=== PATIENT | female | born 1950 | race Two or more races ===

== ENCOUNTER 2020-02-10 11:19 | Outpatient (REF) | payer MEDICARE, SELFPAY ==
[2020-02-10 12:33] LABS: Alanine Aminotransferase 21 U/L (0-31); Albumin Level 4.5 g/dL (3.5-5.0); Alkaline Phosphatase 62 U/L (39-117); Anion Gap 15 (12-20); Aspartate Amino Transferase 27 U/L (5-31); Bilirubin Total 0.4 mg/dL (0.0-1.0); Blood Urea Nitrogen 16 mg/dL (9-16); Calcium 9.6 mg/dL (8.4-10.2); Carbon Dioxide 28 mmol/L (22-29); Chloride 100 mmol/L (96-108); Cholesterol 115 mg/dL; Estimated Glomerular Filt Rate > 60; Glucose Fasting 121 mg/dL (60-99); HDL Cholesterol 44 mg/dL; LDL Cholesterol Calculated 52 mg/dl; Potassium 4.5 mmol/l (3.3-5.1); Sodium 138 mmol/L (135-145); Total Protein 7.6 g/dL (6.5-8.0); Triglycerides 99 mg/dL
== END 2020-02-10 11:20 | disposition home or self-care (01) ==
LOC: HO.LAB 11:19
PROVIDERS: PCP Internal Medicine; Visit Provider Internal Medicine
DX: E11.9 Type 2 diabetes mellitus without complications (principal); E78.00 Pure hypercholesterolemia, unspecified
CPT/HCPCS: 80053; 80061

== ENCOUNTER 2020-07-07 11:09 | Outpatient (REF) | payer MEDICARE, SELFPAY | END 2020-07-07 11:10 | disposition home or self-care (01) | LOC: HO.LAB 11:09 | PROVIDERS: Visit Provider Internal Medicine | DX: Z20.822 Contact with and (suspected) exposure to COVID-19 (principal) | CPT/HCPCS: C9803; U0003; U0005 ==

== ENCOUNTER 2020-10-11 10:27 | Outpatient (REF) | payer MEDICARE, SELFPAY ==
[2020-10-11 11:18] LABS: Basophils Percent Auto 0.7 % (0-2); Eosinophils Absolute Auto 0.1 X10*3/uL (0.0-0.4); Hematocrit 41.1 % (37-47); Hemoglobin 12.5 g/dl (12.0-16.0); Imm Gran Abs Auto 0.01 X10*3/uL (0.00-0.03); Imm Gran Pct Auto 0.2 % (0.0-0.4); Lymphocytes Absolute Auto 2.3 X10*3/uL (1.2-4.9); Lymphocytes Percent Auto 38.1 % (20-40); MANUAL DIFF FLAG SCAN; Mean Corpuscular HGB Conc 30.4 g/dl (31.0-35.0); Mean Corpuscular Hemoglobin 28.5 pg (27.0-33.0); Mean Corpuscular Volume 93.6 fL (80-98); Mean Platelet Volume 12.5 fL (9.4-12.3); Monocytes Absolute Auto 0.5 X10*3/uL (0.1-1.2); Monocytes Percent Auto 7.7 % (2-11); Neutrophils Absolute Auto 3.1 X10*3/uL (2.0-8.3); Neutrophils Percent Auto 51.3 % (45-73); PLT CLUMP 1; Red Blood Count 4.39 X10*6/uL (4.20-5.50); Red Cell Distribution Width 14.2 % (11.0-16.0); SCAN SMEAR FLAG 1
[2020-10-11 11:20] LABS: Alanine Aminotransferase 26 U/L (0-31); Albumin Level 4.3 g/dL (3.5-5.0); Alkaline Phosphatase 95 U/L (39-117); Anion Gap 17 (12-20); Aspartate Amino Transferase 29 U/L (5-31); Bilirubin Total < 0.2 mg/dL (0.0-1.0); Blood Urea Nitrogen 14 mg/dL (9-16); Calcium 9.7 mg/dL (8.4-10.2); Carbon Dioxide 24 mmol/L (22-29); Chloride 104 mmol/L (96-108); Cholesterol 188 mg/dL; Estimated Glomerular Filt Rate > 60; Glucose Fasting 136 mg/dL (60-99); HDL Cholesterol 47 mg/dL; LDL Cholesterol Calculated 115 mg/dl; Potassium 4.7 mmol/L (3.3-5.1); Sodium 140 mmol/L (135-145); Total Protein 7.5 g/dL (6.5-8.0); Triglycerides 134 mg/dL
[2020-10-11 12:20] LABS: White Blood Count 6.1 X10*3/uL (4.8-10.8)
[2020-10-11 12:21] LABS: SLIDE REVIEW VERIFIED
[2020-10-11 12:52] LABS: Folate 11.4 ng/mL (> or = 4.0); Vitamin B12 463 pg/mL (200-900)
[2020-10-11 14:05] LABS: Creatinine Urine 122.37 mg/dL; Microalbum/Creatinine Ratio Ur 10.6 ug/mg cr
[2020-10-15 14:27] LABS: Vitamin D 25-OH, D2 <4 ng/mL; Vitamin D 25-OH, D3 38 ng/mL; Vitamin D 25-OH, Total 38 ng/mL (30-100)
== END 2020-10-11 10:28 | disposition home or self-care (01) ==
LOC: HO.LAB 10:27
PROVIDERS: PCP Internal Medicine; Visit Provider Internal Medicine
DX: D64.9 Anemia, unspecified (principal); E53.8 Deficiency of other specified B group vitamins; E55.9 Vitamin D deficiency, unspecified; E11.9 Type 2 diabetes mellitus without complications; E78.5 Hyperlipidemia, unspecified
CPT/HCPCS: 36415; 80053; 80061; 82043; 82306; 82607; 82746; 85025

== ENCOUNTER 2021-06-29 10:59 | Outpatient (REF) | payer OTHER, SELFPAY ==
[2021-06-29 11:27] LABS: MANUAL DIFF FLAG NO
[2021-06-29 11:50] LABS: Basophils Absolute Auto 0.1 X10*3/uL (0.0-0.2); Basophils Percent Auto 0.7 % (0-2); Eosinophils Absolute Auto 0.1 X10*3/uL (0.0-0.4); Eosinophils Percent Auto 1.8 % (0-4); Hematocrit 40.1 % (37.0-47.0); Hemoglobin 12.2 g/dl (12.0-16.0); Imm Gran Abs Auto 0.02 X10*3/uL (0.00-0.03); Imm Gran Pct Auto 0.3 % (0.0-0.4); Lymphocytes Absolute Auto 3.4 X10*3/uL (1.2-4.9); Lymphocytes Percent Auto 44.4 % (20-40); Mean Corpuscular HGB Conc 30.4 g/dl (31.0-35.0); Mean Corpuscular Hemoglobin 27.6 pg (27.0-33.0); Mean Corpuscular Volume 90.7 fL (80.0-98.0); Mean Platelet Volume 11.4 fL (9.4-12.3); Monocytes Absolute Auto 0.6 X10*3/uL (0.1-1.2); Monocytes Percent Auto 7.5 % (2-11); Neutrophils Absolute Auto 3.4 x10*3/uL (2.0-8.3); Neutrophils Percent Auto 45.3 % (45-73); Platelet Count 231 X10*3/uL (160-400); Red Blood Count 4.42 X10*6/uL (4.20-5.50); Red Cell Distribution Width 14.6 % (11.0-16.0); White Blood Count 7.6 X10*3/uL (4.8-10.8)
[2021-06-29 12:42] LABS: Alanine Aminotransferase 30 U/L (0-31); Albumin Level 4.2 g/dL (3.5-5.0); Alkaline Phosphatase 72 U/L (39-117); Anion Gap 16 (12-20); Aspartate Amino Transferase 33 U/L (5-31); Bilirubin Total 0.5 mg/dL (0.0-1.0); Blood Urea Nitrogen 13 mg/dL (9-16); Calcium 9.8 mg/dL (8.4-10.2); Carbon Dioxide 27 mmol/L (22-29); Chloride 101 mmol/L (96-108); Cholesterol 144 mg/dL; Estimated Glomerular Filt Rate > 60; Glucose Fasting 139 mg/dL (60-99); HDL Cholesterol 47 mg/dL; LDL Cholesterol Calculated 76 mg/dl; Potassium 4.7 mmol/L (3.3-5.1); Sodium 139 mmol/L (135-145); Total Protein 7.4 g/dL (6.5-8.0); Triglycerides 109 mg/dL
[2021-06-29 13:46] LABS: Creatinine Urine 145.35 mg/dL; Microalbum/Creatinine Ratio Ur 11.6 ug/mg cr
[2021-06-29 14:05] LABS: Folate 10.5 ng/mL (> or = 4.0); Vitamin B12 700 pg/mL (200-900)
[2021-07-04 12:25] LABS: Vitamin D 25-OH, D2 <4 ng/mL; Vitamin D 25-OH, D3 38 ng/mL; Vitamin D 25-OH, Total 38 ng/mL (30-100)
== END 2021-06-29 11:00 | disposition home or self-care (01) ==
LOC: HO.LAB 10:59
PROVIDERS: PCP Internal Medicine; Visit Provider Internal Medicine
DX: E78.5 Hyperlipidemia, unspecified (principal); E11.9 Type 2 diabetes mellitus without complications; E55.9 Vitamin D deficiency, unspecified; E53.8 Deficiency of other specified B group vitamins; D64.9 Anemia, unspecified
CPT/HCPCS: 36415; 80053; 80061; 82043; 82306; 82607; 82746; 85025

== ENCOUNTER 2021-12-13 11:16 | Outpatient (REF) | payer OTHER, SELFPAY ==
[2021-12-13 12:54] LABS: Alanine Aminotransferase 38 U/L (0-31); Albumin Level 4.3 g/dL (3.5-5.0); Alkaline Phosphatase 88 U/L (39-117); Anion Gap 18 (12-20); Aspartate Amino Transferase 44 U/L (5-31); Bilirubin Total 0.3 mg/dL (0.0-1.0); Blood Urea Nitrogen 15 mg/dL (9-16); Calcium 9.7 mg/dL (8.4-10.2); Carbon Dioxide 26 mmol/L (22-29); Chloride 102 mmol/L (96-108); Cholesterol 200 mg/dL; Estimated Glomerular Filt Rate > 60; Glucose Fasting 140 mg/dL (60-99); HDL Cholesterol 47 mg/dL; LDL Cholesterol Calculated 121 mg/dl; Potassium 5.2 mmol/L (3.3-5.1); Sodium 141 mmol/L (135-145); Total Protein 7.5 g/dL (6.5-8.0); Triglycerides 160 mg/dL
[2021-12-13 13:15] LABS: Vitamin D 25-OH Total 46.7 ng/mL (>30)
[2021-12-13 13:47] LABS: Creatinine Urine 159.82 mg/dL; Microalbum/Creatinine Ratio Ur 10.6 ug/mg cr
[2021-12-13 14:05] LABS: Folate 13.2 ng/mL (> or = 4.0); Vitamin B12 564 pg/mL (200-900)
== END 2021-12-13 11:17 | disposition home or self-care (01) ==
LOC: HO.LAB 11:16
PROVIDERS: PCP Internal Medicine; Visit Provider Internal Medicine
DX: E78.5 Hyperlipidemia, unspecified (principal); E55.9 Vitamin D deficiency, unspecified; E53.8 Deficiency of other specified B group vitamins; E11.9 Type 2 diabetes mellitus without complications
CPT/HCPCS: 36415; 80053; 80061; 82043; 82306; 82607; 82746

== ENCOUNTER 2022-06-27 09:27 | Outpatient (REF) | payer OTHER, SELFPAY ==
[2022-06-27 11:01] LABS: Creatinine Urine 149.37 mg/dL; Microalbum/Creatinine Ratio Ur 12.7 ug/mg cr
[2022-06-27 12:34] LABS: Alanine Aminotransferase 30 U/L (0-31); Albumin Level 4.2 g/dL (3.5-5.0); Alkaline Phosphatase 93 U/L (39-117); Anion Gap 19 (12-20); Aspartate Amino Transferase 35 U/L (5-31); Bilirubin Total 0.4 mg/dL (0.0-1.0); Blood Urea Nitrogen 15 mg/dL (9-16); Calcium 9.4 mg/dL (8.4-10.2); Carbon Dioxide 21 mmol/L (22-29); Chloride 105 mmol/L (96-108); Cholesterol 144 mg/dL; Estimated Glomerular Filt Rate > 60; Glucose Fasting 155 mg/dL (60-99); HDL Cholesterol 49 mg/dL; LDL Cholesterol Calculated 72 mg/dl; Potassium 4.5 mmol/L (3.3-5.1); Sodium 140 mmol/L (135-145); Total Protein 7.5 g/dL (6.5-8.0); Triglycerides 117 mg/dL
[2022-06-27 12:50] LABS: Vitamin B12 863 pg/mL (200-900)
== END 2022-06-27 09:28 | disposition home or self-care (01) ==
LOC: HO.LAB 09:27
PROVIDERS: PCP Internal Medicine; Visit Provider Internal Medicine
DX: Z00.00 Encounter for general adult medical examination without abnormal findings (principal); E78.5 Hyperlipidemia, unspecified; E55.9 Vitamin D deficiency, unspecified; E11.9 Type 2 diabetes mellitus without complications; E53.8 Deficiency of other specified B group vitamins
CPT/HCPCS: 36415; 80053; 80061; 82043; 82306; 82607; 82746

== ENCOUNTER 2022-10-05 13:43 | Outpatient (AMB) | payer OTHER, SELFPAY ==
[2022-10-05 13:47] VITALS: BP 136/72; BMI 32.4
--- NOTE | 2022-10-05 13:47 | MHC.PC.OV ---
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 by: Self / Same As Patient Allergies Gadolinium-Containing Contrast Medi [Gadolinium-Containing Contrast] Allergy (Mild, Verified 10/05/22 14:04) HIVES atorvastatin Adverse Reaction (Intermediate, Verified 10/05/22 14:04) stomach upset caffeine [CAFFEINE] Adverse Reaction (Intermediate, Verified 10/05/22 14:04) Hypotension lisinopril Adverse Reaction (Intermediate, Verified 10/05/22 14:04) cough simvastatin Adverse Reaction (Intermediate, Verified 10/05/22 14:04) headache Medication List - Last Reconciled 10/05/22 by Shiela Murphy MD alcohol swabs (Alcohol Prep Pads) 1 pad topical BID 50 days alprazolam 0.5 mg PO DAILY PRN 30 days amlodipine 5 mg PO DAILY 90 days baclofen 10 mg PO TID PRN 30 days blood sugar diagnostic (FreeStyle Lite Strips) 1 strip miscellaneous DAILY blood-glucose meter (FreeStyle Lite Meter kit) As directed budesonide-formoterol 80-4.5 mcg/actuation 1 inh inhalation BID 30 days cyanocobalamin (vitamin B-12) ER 1,000 mcg PO DAILY 90 days ibuprofen 800 mg PO Q8H PRN 30 days lancets (TRUEplus Lancets) Use 1 lancet once a day metformin 1,000 mg PO BID 90 days pantoprazole 40 mg PO DAILY 90 days polyvinyl alcohol 1.4% 0 drps ophthalmic (eye) rosuvastatin 40 mg PO DAILY 90 days Tobacco use date assessed: 06/05/22 Fall risk assessment: No Falls in past year Last assessed Fall Risk: 10/05/22 Dental Screening Dental Screen Date: 10/05/22 Did you have a dental visit in the last 12 months?: Yes Did you have a dental problem in the last 6 months where you did not have access to dental care?: No Was dental information given to patient?: Patient has dentist HPI HPI Comments History of Present Illness Details This is a 71-year-old female with diabetes mellitus type 2, hypertension, pure hypercholesterolemia and GERD that comes today for follow-up on her conditions. Blood pressure stable. LDL close to goal. A1c elevated and she admits she is only taking 1 tablet of metformin instead of 2. GERD stable with medication. Denies any chest pain or shortness of breath. Had lumbar pain radiating to the leg and associated with leg numbness that improved on its own. [facility] Medical History B12 deficiency Diabetes mellitus Essential hypertension GERD (gastroesophageal reflux disease) Hypovitaminosis D Polyarthralgia Pure hypercholesterolemia Surgical History History of eye surgery Tubal ligation status Family History Father Asthma Mother Stomach cancer Brother Prostate cancer Bladder cancer Social History Housing: Apartment Alcohol intake: current Alcohol intake frequency: holidays/special occasions only Alcohol type: beer Patient Tobacco Use Status: Never used Tobacco e-Cigarette/Vaping Use: Never Used Second Hand Smoke Exposure: No service: No Current occupational status: disabled Cognitive needs: No Hearing needs: No Vision needs: Yes Questionnaire Thrive Questionnaire Date Thrive assessed: 06/05/22 AMADOU-7 AMB Questionnaire AMADOU-7 Date AMADOU - 7 assessed: 07/11/21 Source: Developed by Drs. Yahir Hayward, Pearl Rodriguez, Wally Pollock and colleagues, with an educational justice from [employer]. Review of Systems Const All systems reviewed & are unremarkable except as noted in HPI and below Eyes Reports no additional complaints, Denies change in vision and Denies other visual disturbances Card Denies chest pain at rest, Denies chest pain with activity, Denies edema, Denies irregular heart rhythm, Denies claudication, Denies dyspnea, Denies dyspnea on exertion, Denies orthopnea, Denies paroxysmal nocturnal dyspnea and Denies slow heart rate Resp Denies cough, Denies dyspnea and Denies dyspnea on exertion GI Denies abdominal pain, Denies change in bowel habits, Denies excessive flatus, Denies nausea and Denies vomiting Denies urinary incontinence, Denies urinary hesitancy and Denies urinary urgency Musc Denies abnormal gait, Denies atrophy, Denies deformity and Denies limited range of motion Skin/Breast Denies bleeding lesions, Denies changing lesions and Denies rash Neuro Denies abnormal gait and Denies lack of coordination Physical exam (Primary Care) Vital Signs: Last Vital Signs BP 136/72 10/05/22 13:47 BMI result Body Mass Index 32.4 Tobacco/Smoking Status: Tobacco use Status Tobacco use date assessed 06/05/22 10/05/22 13:54 Patient Tobacco Use Status Never used Tobacco 10/05/22 13:54 Tobacco use type 07/11/21 14:43 e-Cigarette/Vaping Use Never Used 10/05/22 13:54 Thrive Assessment: Date of Thrive Assessment Date Thrive assessed 06/05/22 10/05/22 13:54 Eyes General: appearance normal, both eyes and all related structures Eyelids: Yes eyelids normal Conjunctivae: conjunctivae normal Neck Neck: Yes normal visual inspection and Yes supple Resp Effort & Inspection: normal respiratory effort Auscultation: clear to auscultation bilaterally Cardio Jugular venous distension: no JVD Rate: regular rate Rhythm: regular rhythm Heart sounds: S1 normal heart sound present and S2 normal heart sound present Extrem General: Yes full ROM Results AMB Hemoglobin A1c AMB Hemoglobin A1c 7.3 % Last Edit by EDIN Michaels on 10/05/22 14:02 Results Reviewed Results Reviewed: Laboratory Last Values Hgb A1c (Clinic) 7.3 % (4.0-6.0) H 10/05/22 13:54 Assessment and Plan Assessment & Plan (1) Diabetes mellitus: Code(s): E11.9 - Type 2 diabetes mellitus without complications Qualifiers: Diabetes mellitus type: type 2 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 A1c goal is equal or less than 7% (2) Essential hypertension: Code(s): I10 - Essential (primary) hypertension Plan: Continue amlodipine. Blood pressure goal is equal or less than 130/80. (3) GERD (gastroesophageal reflux disease): Code(s): K21.9 - Gastro-esophageal reflux disease without esophagitis Qualifiers: Esophagitis presence: esophagitis presence not specified Qualified Code(s): K21.9 - Gastro-esophageal reflux disease without esophagitis Plan: Continue pantoprazole as needed (4) Pure hypercholesterolemia: Code(s): E78.00 - Pure hypercholesterolemia, unspecified Plan: Continue statins. LDL goal is less than 70 Orders: Orders Lipid Panel 5 Months E78.5 - Hyperlipidemia, unspecified Microalbumin, Random (w Creat) 5 Months E11.9 - Type 2 diabetes mellitus without complications Vitamin D 25-OH Total 5 Months E55.9 - Vitamin D deficiency, unspecified Comprehensive [place]. 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
== END 2022-10-05 14:43 | disposition home or self-care (01) ==
PROVIDERS: Visit Provider Internal Medicine
DX: E11.9 Type 2 diabetes mellitus without complications (principal); I10 Essential (primary) hypertension; K21.9 Gastro-esophageal reflux disease without esophagitis; E78.00 Pure hypercholesterolemia, unspecified
CPT/HCPCS: 83036; 99214

== ENCOUNTER 2023-05-04 14:44 | Outpatient (REF) | payer OTHER, SELFPAY ==
--- NOTE | ~2023-05-04 | MM_ITS ---
EXAMINATION: MM SCREENING DIGITAL BREAST TOMOSYNTHESIS, BILATERAL CLINICAL INFORMATION: Screening. Asymptomatic. COMPARISON: Mammography: This study is compared with prior exams dating back to 2016. TECHNIQUE: Digital breast tomosynthesis is performed in both the craniocaudal and mediolateral oblique views along with computer-aided detection (CAD). Synthesized 2D images are generated from the tomosynthesis. FINDINGS: There are scattered areas of fibroglandular density (ACR BI-RADS breast composition Category b). There are no significant masses, abnormal calcifications, or other abnormalities. MM/MM tomosynthesis screening BI IMPRESSION: No mammographic evidence of malignancy. ASSESSMENT: BI-RADS BI-RADS 1 - Negative RECOMMENDATION: Routine annual mammography screening. 1 year F/U This examination should not preclude the clinical evaluation of a suspicious palpable abnormality. This patient's information was entered into a reminder system with a target due date for their next mammogram.
== END 2023-05-04 14:45 | disposition home or self-care (01) ==
LOC: HO.MAMMO 14:44
PROVIDERS: Visit Provider Internal Medicine
DX: Z12.31 Encounter for screening mammogram for malignant neoplasm of breast (principal)
CPT/HCPCS: 77063; 77067

== ENCOUNTER → 2023-05-04 15:15 | Outpatient (BNV) | payer OTHER, SELFPAY | PROVIDERS: Visit Provider Radiology Diagnostic Radiology | DX: Z12.31 Encounter for screening mammogram for malignant neoplasm of breast (principal) | CPT/HCPCS: 77063; 77067 ==

== ENCOUNTER 2023-05-29 09:42 | Outpatient (REF) | payer OTHER, SELFPAY ==
[2023-05-29 11:27] LABS: Alanine Aminotransferase 30 U/L (0-31); Albumin Level 4.1 g/dL (3.5-5.0); Alkaline Phosphatase 107 U/L (39-117); Anion Gap 19 (12-20); Aspartate Amino Transferase 39 U/L (5-31); Bilirubin Total 0.3 mg/dL (0.0-1.0); Blood Urea Nitrogen 12 mg/dL (9-16); Calcium 9.6 mg/dL (8.4-10.2); Carbon Dioxide 24 mmol/L (22-29); Chloride 102 mmol/L (96-108); Cholesterol 198 mg/dL (<200); Estimated Glomerular Filt Rate > 60; Glucose Fasting 163 mg/dL (60-99); HDL Cholesterol 50 mg/dL (>40); LDL Cholesterol Calculated 123 mg/dL (<100); Sodium 141 mmol/L (135-145); Total Protein 7.7 g/dL (6.5-8.0); Triglycerides 125 mg/dL (<150)
[2023-05-29 11:45] LABS: Vitamin D 25-OH Total 85.1 ng/mL (>30)
[2023-05-29 11:53] LABS: Folate 10.7 ng/mL (> or = 4.0); Vitamin B12 983 pg/mL (200-900)
[2023-05-29 13:10] LABS: Creatinine Urine 196.31 mg/dL; Microalbum/Creatinine Ratio Ur 13.2 ug/mg cr (<30)
== END 2023-05-29 09:43 | disposition home or self-care (01) ==
LOC: HO.LAB 09:42
PROVIDERS: PCP Internal Medicine; Visit Provider Internal Medicine
DX: E11.9 Type 2 diabetes mellitus without complications (principal); E78.5 Hyperlipidemia, unspecified; E55.9 Vitamin D deficiency, unspecified; E53.8 Deficiency of other specified B group vitamins
CPT/HCPCS: 36415; 80053; 80061; 82043; 82306; 82570; 82607; 82746

== ENCOUNTER 2023-06-05 13:21 | Outpatient (AMB) | payer OTHER, SELFPAY ==
[2023-06-05 13:23] VITALS: BP 136/80; BMI 32.8
--- NOTE | 2023-06-05 13:23 | A.OFFPC_ITS ---
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 by: Self / Same As Patient Allergies Gadolinium-Containing Contrast Medi [Gadolinium-Containing Contrast] Allergy (Mild, Verified 06/05/23 13:39) HIVES atorvastatin Adverse Reaction (Intermediate, Verified 06/05/23 13:39) stomach upset caffeine [CAFFEINE] Adverse Reaction (Intermediate, Verified 06/05/23 13:39) Hypotension lisinopril Adverse Reaction (Intermediate, Verified 06/05/23 13:39) cough simvastatin Adverse Reaction (Intermediate, Verified 06/05/23 13:39) headache Medication List - Last Reconciled 06/05/23 by Shiela Murphy MD alcohol swabs (Alcohol Prep Pads) 1 pad topical BID 50 days alprazolam 0.5 mg PO DAILY PRN 30 days amlodipine 5 mg PO DAILY 90 days baclofen 10 mg PO TID PRN 30 days blood sugar diagnostic (FreeStyle Lite Strips) 1 strip miscellaneous DAILY blood-glucose meter (FreeStyle Lite Meter kit) As directed budesonide-formoterol 80-4.5 mcg/actuation 1 inh inhalation BID 30 days cyanocobalamin (vitamin B-12) ER 1,000 mcg PO DAILY 90 days ibuprofen 800 mg PO Q8H PRN 30 days lancets (TRUEplus Lancets) Use 1 lancet once a day latanoprost 0.005% drps ophthalmic (eye) metformin 1,000 mg PO BID 90 days pantoprazole 40 mg PO DAILY 90 days rosuvastatin 40 mg PO DAILY 90 days Ventolin HFA 90 mcg/actuation (albuterol sulfate) 2 puffs inhalation Q6H PRN 30 days NS Tobacco use date assessed: 06/05/23 Fall risk assessment: No Falls in past year Last assessed Fall Risk: 06/05/23 Dental Screening Dental Screen Date: 06/05/23 Did you have a dental visit in the last 12 months?: No Did you have a dental problem in the last 6 months where you did not have access to dental care?: No Was dental information given to patient?: Patient has dentist HPI HPI Comments History of Present Illness Details This is a 72-year-old female with hypertension, diabetes mellitus type 2, pure hypercholesterolemia and GERD that comes today for follow-up on her conditions. Blood pressure stable. A1c slightly elevated and she admits not been completely compliant with metformin because she thinks metformin cause kidney failure. I reassured her that her GFR was normal. I add rybelsus. LDL elevated and she also admits not being compliant with rosuvastatin and I will change it Zetia. GERD stable with PPIs. Denies any chest pain or shortness of breath. [facility] Medical History Hypovitaminosis D GERD (gastroesophageal reflux disease) Pure hypercholesterolemia Diabetes mellitus Polyarthralgia B12 deficiency Essential hypertension Surgical History Tubal ligation status History of eye surgery Family History Father Asthma Mother Stomach cancer Brother Prostate cancer Bladder cancer Social History Housing: Apartment Alcohol intake: former Patient Tobacco Use Status: Never used Tobacco e-Cigarette/Vaping Use: Never Used Second Hand Smoke Exposure: No service: No Current occupational status: disabled Cognitive needs: No Hearing needs: No Vision needs: Yes Questionnaire PHQ-9 Over the last 2 weeks, how often have you been bothered by any of the following problems? 1. Little interest or pleasure in doing things: not at all 2. Feeling down, depressed, or hopeless: several days 3. Trouble falling or staying asleep, or sleeping too much: not at all 4. Feeling tired or having little energy: not at all 5. Poor appetite or overeating: several days 6. Feeling bad about yourself - or that you are a failure or have let yourself or your family down: not at all 7. Trouble concentrating on things, such as reading the newspaper or watching television: not at all 8. Moving or speaking so slowly that other people could have noticed. Or the opposite - being so fidgety or restless that you have been moving around a lot more than usual: not at all 9. Thoughts that you would be better off or of hurting yourself in some way: not at all Total score: 2 Depression Screening Interpretation: Negative Depression Screening Done: Yes 71233 - PHQ-9 Billing: Yes Source: Developed by Drs. Yahir Hayward, Pearl Rodriguez, Wally Pollock and colleagues, with an educational justice from [employer]. Thrive Questionnaire Date Thrive assessed: 06/05/23 I am a: Patient What is your living situation today?: I have a steady place to live Within the past 12 months, did the food you bought not last and you didn't have the money to get more?: Never true Within the past 12 months, did you worry whether your food would run out before you got money to buy more?: Never true Do you have trouble paying for medicines?: No Do you have trouble getting transportation to medical appointments?: No Do you have trouble paying your heating and electricity bill?: No Do you have trouble taking care of your child, family member or friend?: No Do you have trouble with day-to-day activities such as bathing, preparing meals, shopping, managing finances, etc.?: No Are you currently unemployed and looking for a job?: No Are you interested in more education?: No Please select the resources that you would like help with: None Currently or been in a relationship where the following occur: no concerns reported THRIVE Score: 0 AUDIT C Alcohol Use Questionnaire (AUDIT-C) 1. How often do you have a drink containing alcohol?: Never Total Score: 0 Score Reviewed/Action Taken: No AMADOU-7 AMB Questionnaire AMADOU-7 Date AMADOU - 7 assessed: 06/05/23 Feeling nervous, anxious, or on edge: 1 = Several days Not being able to stop or control worryin = Not at all Worrying too much about different things: 1 = Several days Trouble relaxin = Not at all Being so restless that it is hard to sit still: 0 = Not at all Becoming easily annoyed or irritable: 1 = Several days Feeling afraid as if something awful might happen: 0 = Not at all Total AMADOU-7 score (0-4 normal; 5-9 mild; 10-14 moderate; 15-21 severe): 3 Source: Developed by Pearl Wallace Kurt Kroenke and colleagues, with an educational justice from [employer]. AMADOU-7 Assessment Billing AMADOU-7 Assessment Tool: AMADOU-7 Assessment 23125 Review of Systems Const All systems reviewed & are unremarkable except as noted in HPI and below Eyes Reports no additional complaints, Denies change in vision and Denies other visual disturbances Card Denies chest pain at rest, Denies chest pain with activity, Denies edema, Denies irregular heart rhythm, Denies claudication, Denies dyspnea, Denies dyspnea on exertion, Denies orthopnea, Denies paroxysmal nocturnal dyspnea and Denies slow heart rate Resp Denies cough, Denies dyspnea and Denies dyspnea on exertion Physical exam (Primary Care) Vital Signs: Last Vital Signs BP 136/80 06/05/23 13:23 BMI result Body Mass Index 32.8 Tobacco/Smoking Status: Tobacco use Status Tobacco use date assessed 06/05/23 06/05/23 13:34 Patient Tobacco Use Status Never used Tobacco 06/05/23 13:34 Tobacco use type 07/11/21 14:43 e-Cigarette/Vaping Use Never Used 06/05/23 13:34 PHQ-9: PHQ-9 Score PHQ-9: Total score 2 06/05/23 13:49 Depression Screening Interpretation: Negative Thrive Assessment: Date of Thrive Assessment Date Thrive assessed 06/05/23 06/05/23 13:34 Currently or been in a relationship where the following occur: no concerns reported Resp Effort & Inspection: normal respiratory effort Auscultation: clear to auscultation bilaterally Cardio Jugular venous distension: no JVD Rate: regular rate Rhythm: regular rhythm Heart sounds: S1 normal heart sound present and S2 normal heart sound present Extrem General: Yes full ROM Results AMB Hemoglobin A1c AMB Hemoglobin A1c 7.3 % Last Edit by EDIN Michaels on 06/05/23 13:3 7 Results Reviewed Results Reviewed: Laboratory Last Values Hgb A1c (Clinic) 7.3 % (4.0-6.0) H 06/05/23 13:23 Assessment and Plan Assessment & Plan (1) Essential hypertension: Code(s): I10 - Essential (primary) hypertension Plan: Continue amlodipine. Blood pressure goal is equal or less than 130/80. 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 Start Rybelsus. A1c goal is equal or less than 7%. (3) Pure hypercholesterolemia: Code(s): E78.00 - Pure hypercholesterolemia, unspecified Plan: Discontinue statins. Start Zetia. LDL goal is less than 70. (4) GERD (gastroesophageal reflux disease): Code(s): K21.9 - Gastro-esophageal reflux disease without esophagitis Qualifiers: Esophagitis presence: esophagitis presence not specified Qualified Code(s): K21.9 - Gastro-esophageal reflux disease without esophagitis Plan: Continue PPIs Orders: Orders Lipid Panel 4 Months E78.5 - Hyperlipidemia, unspecified Vitamin B12 and Folate 4 Months E53.8 - Deficiency of other specified B group vitamins Comprehensive [place]. Panel Fast 4 Months E11.9 - Type 2 diabetes mellitus without complications AMB Hemoglobin A1c Today E11.9 - Type 2 diabetes mellitus without complications Microalbumin, Random (w Creat) 4 Months E11.9 - Type 2 diabetes mellitus without complications Vitamin D 25-OH Total 4 Months E55.9 - Vitamin D deficiency, unspecified Medications: New ezetimibe 10 mg PO DAILY 90 tabs 1RF 90 days semaglutide (Rybelsus) 3 mg PO DAILY 30 tabs 0RF 30 days E11.9 - Type 2 diabetes mellitus without complications Refilled alprazolam 0.5 mg PO DAILY PRN 15 tabs 0RF anxiety 30 days Discontinued rosuvastatin Discontinued Reason: Patient Completed Course 40 mg PO DAILY 90 days 90 tabs 3RF E78.00 - Pure hypercholesterolemia, unspecified Coding Level of Care Code Est Pt Level 4 (29777) Diagnoses Essential hypertension I10 Type 2 diabetes mellitus without complication, without long-term current use of insulin E11.9 Diabetes mellitus type: type 2 Diabetes mellitus snf insulin use: without snf use Diabetes mellitus complication status: without complication Pure hypercholesterolemia E78.00 Gastroesophageal reflux disease, unspecified whether esophagitis present K21.9 Esophagitis presence: esophagitis presence not specified Additional Codes AMADOU-7 Assessment Billing - AMADOU-7 Assessment Tool: AMADOU-7 Assessment 84676 ([id number]) Time Spent (min) 23
== END 2023-06-05 13:48 | disposition home or self-care (01) ==
PROVIDERS: PCP Internal Medicine; Visit Provider Internal Medicine
DX: I10 Essential (primary) hypertension (principal); E11.9 Type 2 diabetes mellitus without complications; E78.00 Pure hypercholesterolemia, unspecified; K21.9 Gastro-esophageal reflux disease without esophagitis
CPT/HCPCS: 83036; 99214

== ENCOUNTER 2023-11-06 09:58 | Outpatient (REF) | payer OTHER, SELFPAY ==
[2023-11-06 11:32] LABS: Alanine Aminotransferase 23 U/L (0-31); Albumin Level 4.1 g/dL (3.5-5.0); Alkaline Phosphatase 106 U/L (39-117); Anion Gap 17 (12-20); Aspartate Amino Transferase 31 U/L (5-31); Bilirubin Total 0.3 mg/dL (0.0-1.0); Blood Urea Nitrogen 14 mg/dL (9-16); Calcium 9.7 mg/dL (8.4-10.2); Carbon Dioxide 22 mmol/L (22-29); Chloride 103 mmol/L (96-108); Cholesterol 135 mg/dL (<200); Estimated Glomerular Filt Rate > 60; Glucose Fasting 189 mg/dL (60-99); HDL Cholesterol 52 mg/dL (>40); LDL Cholesterol Calculated 57 mg/dL (<100); Potassium 4.4 mmol/L (3.3-5.1); Sodium 138 mmol/L (135-145); Total Protein 7.9 g/dL (6.5-8.0); Triglycerides 130 mg/dL (<150)
[2023-11-06 11:52] LABS: Vitamin D 25-OH Total 56.4 ng/mL (>30)
[2023-11-06 11:56] LABS: Folate 10.6 ng/mL (> or = 4.0); Vitamin B12 670 pg/mL (200-900)
[2023-11-06 12:21] LABS: Creatinine Urine 139.06 mg/dL; Microalbum/Creatinine Ratio Ur 14.3 ug/mg cr (<30)
== END 2023-11-06 09:59 | disposition home or self-care (01) ==
LOC: HO.LAB 09:58
PROVIDERS: PCP Internal Medicine; Visit Provider Internal Medicine
DX: E53.8 Deficiency of other specified B group vitamins (principal); E11.9 Type 2 diabetes mellitus without complications; E78.5 Hyperlipidemia, unspecified; E55.9 Vitamin D deficiency, unspecified
CPT/HCPCS: 36415; 80053; 80061; 82043; 82306; 82570; 82607; 82746

== ENCOUNTER 2023-11-07 09:45 | Outpatient (AMB) | payer OTHER, SELFPAY ==
--- NOTE | 2023-11-07 10:00 | A.OFFPC_ITS ---
Vital Signs 11/07/23 10:01 Height 5 ft 3 in Weight 186 lb BMI 32.9 BP 130/76 Blood Pressure Location Lt brachial Position Sitting Pulse 77 Pulse Source Pulse Oximeter Pulse Oximetry (%) 98 Oxygen Delivery Method Room Air Intake Visit Reasons: DM visit Environmental Compliance Technician Required: No Accompanied by: Self / Same As Patient Allergies Gadolinium-Containing Contrast Medi [Gadolinium-Containing Contrast] Allergy (Mild, Verified 11/07/23 10:15) HIVES atorvastatin Adverse Reaction (Intermediate, Verified 11/07/23 10:15) stomach upset caffeine [CAFFEINE] Adverse Reaction (Intermediate, Verified 11/07/23 10:15) Hypotension lisinopril Adverse Reaction (Intermediate, Verified 11/07/23 10:15) cough simvastatin Adverse Reaction (Intermediate, Verified 11/07/23 10:15) headache Medication List - Last Reconciled 11/07/23 by Shiela Murphy MD alcohol swabs (Alcohol Prep Pads) 1 pad topical BID 50 days alprazolam 0.5 mg PO DAILY PRN 30 days amlodipine 5 mg PO DAILY 90 days baclofen 10 mg PO TID PRN 30 days blood sugar diagnostic (FreeStyle Lite Strips) 1 strip miscellaneous DAILY blood-glucose meter (FreeStyle Lite Meter kit) As directed budesonide-formoterol 80-4.5 mcg/actuation 1 inh inhalation BID 30 days cyanocobalamin (vitamin B-12) ER 1,000 mcg PO DAILY 90 days ezetimibe 10 mg PO DAILY 90 days ibuprofen 800 mg PO Q8H PRN 30 days lancets (TRUEplus Lancets) Use 1 lancet once a day latanoprost 0.005% drps ophthalmic (eye) metformin 1,000 mg PO BID 90 days pantoprazole 40 mg PO DAILY 90 days semaglutide (Rybelsus) 3 mg PO DAILY 30 days Ventolin HFA 90 mcg/actuation (albuterol sulfate) 2 puffs inhalation Q6H PRN 30 days NS Tobacco use date assessed: 06/05/23 Fall risk assessment: No Falls in past year Last assessed Fall Risk: 11/07/23 Dental Screening Dental Screen Date: 06/05/23 HPI HPI Comments History of Present Illness Details This is a 72-year-old female with diabetes mellitus type 2, hypertension and pure hypercholesterolemia that complains of right knee pain that has been present for few weeks. It cause her to limp. Denies any previous fall. Will order x-ray. A1c elevated and she is not compliant with Rybelsus due to being afraid of developing thyroid cancer. I will start her on Jardiance. Blood pressure stable. LDL within goal. She is obese with a BMI of 32.9 and was advised to do diet and exercise to reach BMI goal less than 30. [facility] Medical History (Updated 11/07/23 @ 11:06 by Shiela Murphy MD) Hypovitaminosis D GERD (gastroesophageal reflux disease) Pure hypercholesterolemia Diabetes mellitus Polyarthralgia B12 deficiency Essential hypertension Surgical History Tubal ligation status History of eye surgery Family History Father Asthma Mother Stomach cancer Brother Prostate cancer Bladder cancer Social History Housing: Apartment Alcohol intake: former Patient Tobacco Use Status: Never used Tobacco e-Cigarette/Vaping Use: Never Used Second Hand Smoke Exposure: No service: No Current occupational status: disabled Cognitive needs: No Hearing needs: No Vision needs: Yes Questionnaire Thrive Questionnaire Date Thrive assessed: 06/05/23 AUDIT C Alcohol Use Questionnaire (AUDIT-C) 1. How often do you have a drink containing alcohol?: Never 3. How often do you have six or more drinks on one occasion?: Never Total Score: 0 Score Reviewed/Action Taken: No AMADOU-7 AMB Questionnaire AMADOU-7 Date AMADOU - 7 assessed: 06/05/23 Source: Developed by Drs. Yahir Hayward, Pearl Rodriguez, Wally Pollock and colleagues, with an educational justice from [employer]. Review of Systems Const All systems reviewed & are unremarkable except as noted in HPI and below Card Denies chest pain at rest, Denies chest pain with activity, Denies edema, Denies irregular heart rhythm, Denies claudication, Denies dyspnea, Denies dyspnea on exertion, Denies orthopnea, Denies paroxysmal nocturnal dyspnea and Denies slow heart rate Resp Denies cough, Denies dyspnea and Denies dyspnea on exertion GI Denies abdominal pain, Denies change in bowel habits, Denies excessive flatus, Denies nausea and Denies vomiting Denies urinary incontinence, Denies urinary hesitancy and Denies urinary urgency Musc Denies abnormal gait, Denies atrophy, Denies deformity, Reports arthralgias and Denies limited range of motion Skin/Breast Denies bleeding lesions, Denies changing lesions and Denies rash Neuro Denies abnormal gait, Denies behavioral changes and Denies lack of coordination Psych Denies behavioral changes Physical exam (Primary Care) Vital Signs: Last Vital Signs Pulse 77 11/07/23 10:01 BP 130/76 11/07/23 10:01 Pulse Ox 98 11/07/23 10:01 Oxygen Delivery Method Room Air 11/07/23 10:01 BMI result Body Mass Index 32.9 BMI Assessment/Plan discussion: High BMI High, discussed plan: lifestyle, weight reduction, dietary and physical activity Tobacco/Smoking Status: Tobacco use Status Tobacco use date assessed 06/05/23 11/07/23 10:08 Patient Tobacco Use Status Never used Tobacco 11/07/23 10:08 Tobacco use type 07/11/21 14:43 e-Cigarette/Vaping Use Never Used 11/07/23 10:08 Thrive Assessment: Date of Thrive Assessment Date Thrive assessed 06/05/23 11/07/23 10:08 Resp Effort & Inspection: normal respiratory effort Auscultation: clear to auscultation bilaterally Cardio Jugular venous distension: no JVD Rate: regular rate Rhythm: regular rhythm Heart sounds: S1 normal heart sound present and S2 normal heart sound present Neuro General: no focal motor deficits Extrem General: Yes full ROM Results AMB Hemoglobin A1c AMB Hemoglobin A1c 7.7 % Last Edit by EDIN Ochoa on 11/07/23 10:10 Results Reviewed Results Reviewed: Laboratory Last Values Hgb A1c (Clinic) 7.7 % (4.0-6.0) H 11/07/23 10:09 Assessment and Plan Assessment & Plan (1) Diabetes mellitus: Code(s): E11.9 - Type 2 diabetes mellitus without complications Qualifiers: Diabetes mellitus type: type 2 Diabetes mellitus detention insulin use: without detention use Diabetes mellitus complication status: without complication Qualified Code(s): E11.9 - Type 2 diabetes mellitus without complications Plan: Continue metformin. Start Jardiance. A1c goal is equal or less than 7%. (2) Pure hypercholesterolemia: Code(s): E78.00 - Pure hypercholesterolemia, unspecified Plan: Continue statins. LDL goal is less than 70. (3) Right knee pain: Code(s): M25.561 - Pain in right knee Qualifiers: Chronicity: acute Qualified Code(s): M25.561 - Pain in right knee Plan: X-ray ordered. (4) Essential hypertension: Code(s): I10 - Essential (primary) hypertension Plan: Continue amlodipine. Blood pressure goal is equal or less than 130/80. Orders: Orders AMB Hemoglobin A1c Today E11.9 - Type 2 diabetes mellitus without complications XR knee RT 2V Today M25.561 - Pain in right knee Lipid Panel 4 Months E78.5 - Hyperlipidemia, unspecified Comprehensive [place]. Panel Fast 4 Months E11.9 - Type 2 diabetes mellitus without complications Microalbumin, Random (w Creat) 4 Months E11.9 - Type 2 diabetes mellitus without complications Medications: New empagliflozin (Jardiance) 10 mg PO DAILY 90 tabs 1RF 90 days E11.9 - Type 2 diabetes mellitus without complications Discontinued semaglutide (Rybelsus) Discontinued Reason: Patient Completed Course 3 mg PO DAILY 30 days 30 tabs 0RF E11.9 - Type 2 diabetes mellitus without complications Review Patient declined Colonoscopy: 11/07/23 Patient declined Colon Cancer Screen Lab: 11/07/23 Coding Level of Care Code Est Pt Level 4 (05755) Complex EM visit Add On G2211 Diagnoses Type 2 diabetes mellitus without complication, without long-term current use of insulin E11.9 Diabetes mellitus type: type 2 Diabetes mellitus director long term care insulin use: without detention use Diabetes mellitus complication status: without complication Pure hypercholesterolemia E78.00 Acute pain of right knee M25.561 Chronicity: acute Essential hypertension I10 Time Spent (min) 23
[2023-11-07 10:01] VITALS: BP 130/76; PULSE 77; O2SAT 98; BMI 32.9
== END 2023-11-07 10:29 | disposition home or self-care (01) ==
PROVIDERS: PCP Internal Medicine; Visit Provider Internal Medicine
DX: E11.9 Type 2 diabetes mellitus without complications (principal); E78.00 Pure hypercholesterolemia, unspecified; M25.561 Pain in right knee; I10 Essential (primary) hypertension
CPT/HCPCS: 83036; 99214; G2211

== ENCOUNTER 2023-11-08 10:47 | Outpatient (REF) | payer OTHER, SELFPAY ==
--- NOTE | ~2023-11-08 | XR_ITS ---
EXAMINATION: X-RAY RIGHT KNEE CLINICAL INFORMATION: Right knee pain. COMPARISON: 10/13/2016. TECHNIQUE: AP and lateral views right knee. FINDINGS: Small joint effusion. Mild narrowing of the medial compartment. Tiny medial marginal and patellofemoral osteophytes. Possible loose bodies in the medial and central aspects of the knee, not appreciated on the prior exam. XR/XR knee RT 2V IMPRESSION: Mild degenerative changes.Possible loose bodies in the medial and central aspects of the knee, not appreciated on the prior exam. Electronically signed by: Doris Kaye MD 11/26/2023 01:12 PM EDT
== END 2023-11-08 10:48 | disposition home or self-care (01) ==
LOC: HO.XRAY 10:47
PROVIDERS: PCP Internal Medicine; Visit Provider Internal Medicine
DX: M25.561 Pain in right knee (principal)
CPT/HCPCS: 73560

== ENCOUNTER 2024-04-14 09:43 | Outpatient (REF) | payer OTHER, SELFPAY ==
[2024-04-14 11:10] LABS: Creatinine Urine 198.18 mg/dL; Microalbum/Creatinine Ratio Ur 11.6 ug/mg cr (<30)
[2024-04-14 11:22] LABS: Alanine Aminotransferase 26 U/L (0-31); Alkaline Phosphatase 89 U/L (39-117); Anion Gap 14 (12-20); Aspartate Amino Transferase 37 U/L (5-31); Bilirubin Total 0.3 mg/dL (0.0-1.0); Blood Urea Nitrogen 16 mg/dL (9-16); Calcium 9.3 mg/dL (8.4-10.2); Carbon Dioxide 24 mmol/L (22-29); Chloride 105 mmol/L (96-108); Cholesterol 210 mg/dL (<200); Estimated Glomerular Filt Rate > 60; Glucose Fasting 141 mg/dL (60-99); HDL Cholesterol 42 mg/dL (>40); LDL Cholesterol Calculated 132 mg/dL (<100); Potassium 4.4 mmol/L (3.3-5.1); Sodium 139 mmol/L (135-145); Total Protein 8.1 g/dL (6.5-8.0); Triglycerides 181 mg/dL (<150)
[2024-04-14 11:38] LABS: Vitamin D 25-OH Total 72.1 ng/mL (>30)
[2024-04-14 11:47] LABS: Folate 12.1 ng/mL (> or = 4.0); Vitamin B12 524 pg/mL (200-900)
== END 2024-04-14 09:44 | disposition home or self-care (01) ==
LOC: HO.LAB 09:43
PROVIDERS: PCP Internal Medicine; Visit Provider Internal Medicine
DX: E11.9 Type 2 diabetes mellitus without complications (principal); E55.9 Vitamin D deficiency, unspecified; E78.5 Hyperlipidemia, unspecified; E53.8 Deficiency of other specified B group vitamins
CPT/HCPCS: 36415; 80053; 80061; 82043; 82306; 82570; 82607; 82746

== ENCOUNTER 2024-04-15 09:47 | Outpatient (AMB) | payer OTHER, SELFPAY ==
--- NOTE | 2024-04-15 09:55 | MHC.PC.OV ---
Vital Signs 04/15/24 09:56 Height 5 ft 3 in Weight 187 lb BMI 33.1 BP 132/70 Blood Pressure Location Lt brachial Position Sitting Intake Visit Reasons: Annual Exam Intake Note: Patient here for a physical exam Embedded Systems Software Engineer Required: Yes Embedded Systems Software Engineer Language: Technician Automatic Name: Shiela Murphy MD Information Interpreted: non-clinical & clinical Accompanied by: Self / Same As Patient Allergies Gadolinium-Containing Contrast Medi [Gadolinium-Containing Contrast] Allergy (Mild, Verified 04/15/24 10:11) HIVES atorvastatin Adverse Reaction (Intermediate, Verified 04/15/24 10:11) stomach upset caffeine [CAFFEINE] Adverse Reaction (Intermediate, Verified 04/15/24 10:11) Hypotension lisinopril Adverse Reaction (Intermediate, Verified 04/15/24 10:11) cough simvastatin Adverse Reaction (Intermediate, Verified 04/15/24 10:11) headache Medication List - Last Reconciled 04/15/24 by Shiela Murphy MD alcohol swabs (Alcohol Prep Pads) 1 pad topical BID 50 days alprazolam 0.5 mg PO DAILY PRN 30 days amlodipine 5 mg PO DAILY 90 days baclofen 10 mg PO TID PRN 30 days blood sugar diagnostic (FreeStyle Lite Strips) 1 strip miscellaneous DAILY blood-glucose meter (FreeStyle Lite Meter kit) As directed budesonide-formoterol 80-4.5 mcg/actuation 1 inh inhalation BID 30 days cyanocobalamin (vitamin B-12) ER 1,000 mcg PO DAILY 90 days ezetimibe 10 mg PO DAILY 90 days ibuprofen 800 mg PO Q8H PRN 30 days lancets (TRUEplus Lancets) Use 1 lancet once a day latanoprost 0.005% drps ophthalmic (eye) metformin 1,000 mg PO BID 90 days pantoprazole 40 mg PO DAILY 90 days Ventolin HFA 90 mcg/actuation (albuterol sulfate) 2 puffs inhalation Q6H PRN 30 days NS Tobacco use date assessed: 04/15/24 Fall risk assessment: No Falls in past year Last assessed Fall Risk: 04/15/24 Dental Screening Dental Screen Date: 04/15/24 Did you have a dental visit in the last 12 months?: Yes Did you have a dental problem in the last 6 months where you did not have access to dental care?: No Was dental information given to patient?: Patient has dentist HPI HPI Comments History of Present Illness Details The patient is a 73-year-old female presenting for a physical examination and health maintenance. She has a history of type 2 diabetes mellitus, with a current Hemoglobin A1c recorded at 7.5%. The patient had previously been on Jardiance, but its use was discontinued due to vaginal itching. Her diabetic management currently involves Metformin administered twice daily. The patient also has a history of hyperlipidemia, with an LDL cholesterol level of 130 mg/dL. She experiences gastrointestinal discomfort when taking atorvastatin. Alternatives such as simvastatin were also intolerable due to headaches. Presently, she uses Setia 10 mg for cholesterol management. Hypertension is managed with 5 mg of amlodipine, which controls her blood pressure effectively. She utilizes short-acting bronchodilators in conjunction with Budesonide/Formoterol twice daily for her asthma, and she reports this regimen is effective. Muscle spasms are managed with Baclofen. The patient experiences anxiety and depression, for which she is managed by a psychiatrist and psychologist. Alprazolam is prescribed on a PRN basis for acute anxiety episodes. She denies the use of alcohol and tobacco. There is no participation in colonoscopy screening noted. - Yxpkqzv-ymfvumbpxe-petjmjukc (Tdap) vaccine recommended due to timing. - Pneumonia vaccine is due as the last one was administered before age 65. - Mammography was performed in May of the previous year. - Eye examination completed within the last year. - Emphasis on appropriately managing lipid levels and glucose monitoring. - Discussion on the avoidance of food high in saturated fats and managing dietary habits effectively. - Budesonide/Formoterol inhaler for asthma requires prior authorization for pharmacy coverage. [facility] Medical History (Updated 04/15/24 @ 13:28 by Shiela Murphy MD) Hypovitaminosis D GERD (gastroesophageal reflux disease) Pure hypercholesterolemia Diabetes mellitus Polyarthralgia B12 deficiency Essential hypertension Surgical History Tubal ligation status History of eye surgery Family History Father Asthma Mother Stomach cancer Brother Prostate cancer Bladder cancer Social History Housing: Apartment Alcohol intake: former Patient Tobacco Use Status: Never used Tobacco e-Cigarette/Vaping Use: Never Used Second Hand Smoke Exposure: No service: No Current occupational status: disabled Cognitive needs: No Hearing needs: No Vision needs: Yes Questionnaire PHQ-9 Over the last 2 weeks, how often have you been bothered by any of the following problems? 1. Little interest or pleasure in doing things: not at all 2. Feeling down, depressed, or hopeless: not at all 3. Trouble falling or staying asleep, or sleeping too much: not at all 4. Feeling tired or having little energy: not at all 5. Poor appetite or overeating: not at all 6. Feeling bad about yourself - or that you are a failure or have let yourself or your family down: not at all 7. Trouble concentrating on things, such as reading the newspaper or watching television: not at all 8. Moving or speaking so slowly that other people could have noticed. Or the opposite - being so fidgety or restless that you have been moving around a lot more than usual: not at all 9. Thoughts that you would be better off or of hurting yourself in some way: not at all Total score: 0 Depression Screening Interpretation: Negative Depression Screening Done: Yes 20024 - PHQ-9 Billing: Yes Source: Developed by Drs. Yahir Hayward, Pearl Rodriguez, Wally Pollock and colleagues, with an educational justice from [employer]. Thrive Questionnaire Date Thrive assessed: 04/15/24 I am a: Patient What is your living situation today?: I have a steady place to live Within the past 12 months, did the food you bought not last and you didn't have the money to get more?: I choose not to answer this question Within the past 12 months, did you worry whether your food would run out before you got money to buy more?: I choose not to answer this question Do you have trouble paying for medicines?: I choose not to answer this question Do you have trouble getting transportation to medical appointments?: I choose not to answer this question Do you have trouble paying your heating and electricity bill?: I choose not to answer this question Do you have trouble taking care of your child, family member or friend?: I choose not to answer this question Do you have trouble with day-to-day activities such as bathing, preparing meals, shopping, managing finances, etc.?: I choose not to answer this question Are you currently unemployed and looking for a job?: I choose not to answer this question Are you interested in more education?: I choose not to answer this question Please select the resources that you would like help with: None Currently or been in a relationship where the following occur: I choose not to answer THRIVE Score: 0 AUDIT C Alcohol Use Questionnaire (AUDIT-C) 1. How often do you have a drink containing alcohol?: Never Total Score: 0 Score Reviewed/Action Taken: No AMADOU-7 AMB Questionnaire AMADOU-7 Date AMADOU - 7 assessed: 04/15/24 Feeling nervous, anxious, or on edge: 0 = Not at all Not being able to stop or control worryin = Not at all Worrying too much about different things: 0 = Not at all Trouble relaxin = Not at all Being so restless that it is hard to sit still: 0 = Not at all Becoming easily annoyed or irritable: 0 = Not at all Feeling afraid as if something awful might happen: 0 = Not at all Total AMADOU-7 score (0-4 normal; 5-9 mild; 10-14 moderate; 15-21 severe): 0 Source: Developed by Drs. Yahir Hayward, Pearl Rodriguez, Wally Pollock and colleagues, with an educational justice from [employer]. AMADOU-7 Assessment Billing AMADOU-7 Assessment Tool: AMADOU-7 Assessment 18122 Review of Systems Const All systems reviewed & are unremarkable except as noted in HPI and below Card Denies chest pain at rest, Denies chest pain with activity, Denies edema, Denies irregular heart rhythm, Denies claudication, Denies dyspnea, Denies dyspnea on exertion, Denies orthopnea, Denies paroxysmal nocturnal dyspnea and Denies slow heart rate Resp Denies cough, Denies dyspnea and Denies dyspnea on exertion GI Denies abdominal pain, Denies change in bowel habits, Denies excessive flatus, Denies nausea and Denies vomiting Denies urinary incontinence, Denies urinary hesitancy and Denies urinary urgency Musc Denies atrophy, Denies deformity and Denies limited range of motion Skin/Breast Denies bleeding lesions, Denies changing lesions and Denies rash Physical exam (Primary Care) Vital Signs: Last Vital Signs BP 132/70 04/15/24 09:56 BMI result Body Mass Index 33.1 BMI Assessment/Plan discussion: High BMI High, discussed plan: lifestyle, weight reduction, dietary and physical activity Tobacco/Smoking Status: Tobacco use Status Tobacco use date assessed 04/15/24 04/15/24 10:03 Patient Tobacco Use Status Never used Tobacco 04/15/24 10:03 Tobacco use type 07/11/21 14:43 e-Cigarette/Vaping Use Never Used 04/15/24 10:03 PHQ-9: PHQ-9 Score PHQ-9: Total score 0 04/15/24 12:57 Depression Screening Interpretation: Negative Thrive Assessment: Date of Thrive Assessment Date Thrive assessed 04/15/24 04/15/24 10:03 Currently or been in a relationship where the following occur: I choose not to answer Resp Effort & Inspection: normal respiratory effort Auscultation: clear to auscultation bilaterally Cardio Jugular venous distension: no JVD Rate: regular rate Rhythm: regular rhythm Heart sounds: S1 normal heart sound present and S2 normal heart sound present Extrem General: Yes full ROM Results AMB Hemoglobin A1c AMB Hemoglobin A1c 7.5 % Last Edit by EDIN Michaels on 04/15/24 10:06 Immunizations pneumoc 20-anahi conj-dip cr(PF) 0.5 mL IM syringe Performing Provider: Shiela Murphy MD Performing Location: [facility] [place] [facility] Administered by: EDIN Michaels on 04/15/24 10:30 Dose Route Admin Location Dispensed Lot Number Expiration Date [facility] Retrieval Specialist 0.5 mL IM Right Deltoid 0.5 mL [id number] 06/03/25 [id number] [employer] VIS Given Date VIS Provided VIS Publication Date 04/15/24 Single Vaccine 21 Eligibility Eligibility Date Funding Source Not [facility] Eligible 04/15/24 Private Boostrix Tdap 2.5 Lf unit-8 mcg-5 Lf/0.5 mL intramuscular syringe Performing Provider: Shiela Murphy MD Performing Location: [facility] [place] [facility] Administered by: EDIN Michaels on 04/15/24 10:30 Dose Route Admin Location Dispensed Lot Number Expiration Date [facility] Retrieval Specialist 0.5 mL IM Left Deltoid 0.5 mL [id number] 05/24/26 [id number] [employer] VIS Given Date VIS Provided VIS Publication Date 04/15/24 Single Vaccine 20 Eligibility Eligibility Date Funding Source Not [facility] Eligible 04/15/24 Private Results Reviewed Results Reviewed: Laboratory Last Values Hgb A1c (Clinic) 7.5 % (4.0-6.0) H 04/15/24 10:05 Coding Level of Care Code Est Pt Prev Care >65y(03451) Diagnoses Physical exam Z00.00 Type 2 diabetes mellitus without complication, without long-term current use of insulin E11.9 Diabetes mellitus type: type 2 Diabetes mellitus custodial insulin use: without custodial use Diabetes mellitus complication status: without complication Mild major depression F32.0 Additional Codes AMADOU-7 Assessment Billing - AMADOU-7 Assessment Tool: AMADOU-7 Assessment 07836 ([id number]) PHQ-9 - 33690 - PHQ-9 Billing: Yes ([id number]) Time Spent (min) 32 Assessment & Plan Assessment & Plan (1) Physical exam: Code(s): Z00.00 - Encounter for general adult medical examination without abnormal findings Category: Medical (2) Diabetes mellitus: Code(s): E11.9 - Type 2 diabetes mellitus without complications Category: Medical Qualifiers: Diabetes mellitus type: type 2 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 - Continue current diabetic regimen with Metformin; re-evaluate A1c in upcoming labs. - Prescribe alternative medication to Jardiance considering past side effects. - Manage hyperlipidemia with Setia, watch dietary fats intake. - Continue asthma treatment with current inhaler regimen; ensure inhaler authorization is obtained. - Maintain Baclofen for spasm control, amlodipine for hypertension control, and PRN Alprazolam for anxiety. - Discuss adherence and modification of current diet plans and exercise regimen aiming at cardiovascular risk reduction. - Plan to have labs rechecked before the next appointment. - Regular visits to mental health providers for ongoing support with anxiety and depression. Patient was informed and verbally consented to the use of an ambient scribe for clinic note documentation during this visit. I discussed the necessity of receiving the Tdap and pneumonia vaccines given their due status. We reviewed her current medication regimens, including stipulations around previous intolerances to statins and Jardiance. A balanced diet low in saturated fats was emphasized for cholesterol management while continuing current regimens for diabetes and hypertension. We talked about controlling her asthma effectively under the current medication plan and ensuring necessary authorizations for her inhaler. Follow-up for laboratory testing is planned before her next appointment. The ongoing need for mental health support and anxiety management was acknowledged and will continue. Orders: Orders AMB Hemoglobin A1c Today E11.9 - Type 2 diabetes mellitus without complications Lipid Panel 4 Months E78.5 - Hyperlipidemia, unspecified Comprehensive [place]. Panel Fast 4 Months E11.9 - Type 2 diabetes mellitus without complications Pneumococcal 20 Immunization Today Z23 - Encounter for immunization Microalbumin, Random (w Creat) 4 Months R80.9 - Proteinuria, unspecified Vitamin D 25-OH Total 4 Months E55.9 - Vitamin D deficiency, unspecified XR DEXA axial skeleton Today Z78.0 - Asymptomatic menopausal state TDaP Immunization Today Z23 - Encounter for immunization Medications: New semaglutide (Rybelsus) 3 mg PO DAILY 30 tabs 0RF 30 days Refilled Ventolin HFA 90 mcg/actuation (albuterol sulfate) 2 puffs inhalation Q6H PRN 18 grams 1RF shortness of breath or wheezing 30 days NS budesonide-formoterol 80-4.5 mcg/actuation 1 inh inhalation BID 10.2 grams 1RF 30 days Patient Instructions: - Receive Tdap and pneumonia vaccines. - Continue current medications as prescribed; Metformin for diabetes, Setia for cholesterol management, and amlodipine for blood pressure. - Maintain prescribed inhaler use and monitor any adverse reactions. - Avoid foods high in saturated fats and monitor dietary habits. - Follow-up with the next scheduled lab tests prior to the upcoming appointment. - Engage with mental health professionals regularly for anxiety management. - Contact the clinic with any new or worsening symptoms.
[2024-04-15 09:56] VITALS: BP 132/70; BMI 33.1
== END 2024-04-15 10:39 | disposition home or self-care (01) ==
PROVIDERS: PCP Internal Medicine; Visit Provider Internal Medicine
DX: Z00.00 Encounter for general adult medical examination without abnormal findings (principal); E11.9 Type 2 diabetes mellitus without complications; F32.0 Major depressive disorder, single episode, mild; Z23 Encounter for immunization

== ENCOUNTER → 2024-04-15 09:47 | Outpatient (BNVA) | payer OTHER, SELFPAY | PROVIDERS: PCP Internal Medicine; Visit Provider Internal Medicine | DX: Z00.00 Encounter for general adult medical examination without abnormal findings (principal); Z23 Encounter for immunization; E11.9 Type 2 diabetes mellitus without complications; F32.0 Major depressive disorder, single episode, mild | CPT/HCPCS: 83036; 90471; 90677; 90715; 96127; 99397 ==

== ENCOUNTER 2024-06-13 13:29 | Outpatient (REF) | payer OTHER, SELFPAY ==
--- NOTE | ~2024-06-13 | MM_ITS ---
EXAMINATION: DXA BONE DENSITY AXIAL HISTORY: Z78.0 - Asymptomatic menopausal state TECHNIQUE: [employer] Dual energy absorptiometry (DEXA) of the lumbar spine, total left hip, and femoral neck was performed. COMPARISON: There are no prior studies for comparison. FINDINGS: The bone mineral density of the lumbar spine is 1.246 with a T-score of 0.6, and a Z-score of 1.7. This is indicative of normal bone mineral density. The bone mineral density of the left total hip is 1.170 with a T-score of 1.3, and a Z-score of 2.4. This is indicative of normal bone mineral density. The bone mineral density of the left femoral neck is 1.045 with a T-score of 0.1, and a Z-score of 1.4. This is indicative of normal bone mineral density. FRACTURE RISK: The FRAX index suggests a risk of major osteoporotic fracture of 3.8%, and of hip fracture 0.2%. MM/XR DEXA axial skeleton IMPRESSION: Based on bone mineral density, and according to World Health Organization (WHO) criteria, the diagnosis is consistent with normal bone mineral density. All bone density values are in grams per centimeter squared (g/cm2). Statistically, 68% of repeat scans fall within 1 SD (+/- 0.010 g/cm2 for AP spine L1-L4) and 1 SD (+/- 0.012 g/cm2 for femur total) FRAX is a trademark of the [employer]'s [employer] Metabolic Bone Disease, a World Health Organization (WHO) Collaborating Center. Electronically signed by: Yahir Bright MD 06/13/2024 02:14 PM EDT
--- OUTSIDE RECORDS SUMMARY | 2024-06-13 13:51 | XMS_ITS | Encounter Summary ---
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 Name Role Phone Unavailable Primary Care Provider Unavailabl e Reason for Visit * Reason Comments Dentures Patient wants a new dentures Encounter Details Date Type Department Care Team (Late st Contact Info) Description 06/09/2024 2:30 PM EDT Office Visit [facility] [address] [place] [address] Eliseo Lei DDS [address] [place] [address] Edentulous maxilla (Primary Dx); Ill-fitting dentures Social History Tobacco Use Types Packs/Day Years Used Date Smoking Tobacco: Former Cigarettes Smokeless Tobacco: Never Tobacco Cessation:Counseling Given: Not Answered Alcohol Use Standard Drinks/Week Comments Not Currently 0 (1 standard drink = 0.6 oz pur e alcohol) Comments Unknown Sex and Gender Information Value Date Recorded Sex Assigned at Female 01/02/2022 10:20 AM EDT Legal Sex Female 10:20 AM EDT Gender Identity Female 05/13/2024 11:58 AM EDT Sexual Orientation Straight 01/02/2022 10 :20 AM EDT documented as of this encounter Last Filed Vital Signs Vital Sign Reading Time Taken Comments Blood Pressure 144/66 06/09/2024 2:11 PM EDT Pulse 100 06/09/2024 2:11 PM EDT Temperature - - Respiratory Rate - - Oxygen Saturation - - Inhaled Oxygen Concentration - - Weight - - Height - - Body Mass Index - - documented in this encounter Progress Notes * Eliseo Lei DDS - 06/09/2024 2:30 PM EDT Dental procedures in this visit [id number] - COMPREHENSIVE ORAL EVALUATION - NEW OR ESTABLISHED PATIENT (Completed) Service provider: Eliseo Lei DDS Billing provider: Eliseo Lei DDS [id number] - PANORAMIC RADIOGRAPHIC IMAGE Full (Completed) Service provider: Eliseo Lei DDS Billing provider: Eliseo Lei DDS [id number] - CASE PRESENTATION, DETAILED AND EXTENSIVE TREATMENT PLANNING (Completed) Service provider: Eliseo Lei DDS Billing provider: Eliseo Lei DDS [id number] - ADJUST PARTIAL DENTURE - MANDIBULAR (Completed) Service provider: Eliseo Lei DDS Billing provider: Eliseo Lei DDS Patient ID: Keara Vazquez is a 73 y.o. female. Time Out: Timeout Date: 06/09/24, Timeout Time: 1414 (Dental exam) Location: [facility] Tooth: Maxilla and Mandible Procedure: Exam and X-rays Verified the above with patient, learning support assistant, and provider. Confirmed via patient's chart, intraorally and by radiographs. Blasting Contract Man: not applicable Chief Complaint Patient presents with Dentures Patient wants a new dentures Medical Hx: Vitals: Blood pressure (!) 144/66, pulse 100. Past Medical History: Diagnosis Date Anxiety Asthma Diabetes mellitus ([facility]) GERD (gastroesophageal reflux disease) Hypertension Medications: Outpatient Encounter Medications as of 06/09/2024 Medication Sig Dispense Refill ALPRAZolam (Xanax) 0.5 MG tablet Take 1 tablet by mouth if needed at bedtime for anxiety. amLODIPine (Norvasc) 5 MG tablet Take 1 tablet by mouth Once per day. brimonidine (AlphaGAN) 0.2 % ophthalmic solution PLACE 1 DROP IN THE LEFT EYE TWICE DAILY 12 HOURS APART budesonide-formoterol (Symbicort) 80-4.5 MCG/ACT inhaler INHALE 1 PUFF BY MOUTH TWICE DAILY, RINSE MOUTH AFTER USING. Cyanocobalamin (B-12) 1000 MCG tablet controlled-release Take 1 tablet by mouth Once per day. ibuprofen 800 MG tablet TAKE 1 TABLET BY MOUTH EVERY 8 HOURS NEEDED (for pain) latanoprost (Xalatan) 0.005 % ophthalmic solution PLACE 1 DROP IN THE LEFT EYE EVERY DAY AT BEDTIME pantoprazole (ProtoNix) 40 MG EC tablet Take 1 tablet by mouth Once per day. polyvinyl alcohol (Liquifilm Tears) 1.4 % ophthalmic solution INSTILL 1 DROP INTO THE AFFECTED EYE(S) 4-6 TIMES DAILY. UP TO EVERY 2 HOURS NEEDED para sea comoda Ventolin HFA 108 (90 Base) MCG/ACT inhaler INHALE 2 PUFFS BY MOUTH EVERY 6 HOURS NEEDED FOR WHEEZING OR SHORTNESS OF BREATH No facility-administered encounter medications on file as of 06/09/2024. Objective HPI Asymptomatic Head and Neck Exam: Lymph Nodes, Lips, Palate, Buccal Mucosa, Floor of Mouth, Tongue, Tonsils, Alveolar Ridges, Oropharynx, Salivary Ducts, and Vestibules normal appearance Details: Skin WNL . Ear piercing ( unable to remove R side one) OCS: negative Dental Exam As charted Max. Complete edentulous, old denture no chief complaint Man. 27,28 to monitor . Pt not using jocelyne. Due to pressure point on left lingula and buccal regions Adjusted jocelyne. RPD . Adjust left flanges. Reference tooth chart for additional findings. Oral Cancer Risk: Low Risk Oral Hygiene Instructions: [place] two times daily, modified del valle technique, Floss daily, Electric toothbrush, Soft bristle toothbrush, [place] Tongue Caries Risk Assessment: Low- no risk factor No caries on the only two teeth left . Assessment/Plan KALPESH X Rays Schedule for imp. On max. Denture only . Pt doesn't want jocelyne. Prosthesis Patient tolerated procedure well, all questions answered and expressed understanding. Dismissed in good condition. NV: Imp when approved Programs Manager: Hussein Dior Dentist: Eliseo Lei DDS documented in this encounter Plan of Treatment Scheduled Orders Name Type Priority Associated Diagnoses Orde r Schedule Max Max COMPLETE DENTURE - MAXILLARY Dental Routine 1 Occurrence s starting 06/09/2024 documented as of this encounter Procedures Procedure Name Priority Date/Time Associated Diagnosis Comments Full PANORAMIC RADIOGRAPHIC IMAGE Routine 06/09/2024 2:30 PM EDT COMPREHENSIVE ORAL EVALUATION - NEW OR ESTABLISHED PATIENT Routine 06/09/2024 2:30 PM EDT CASE PRESENTATION, DETAILED AND EXTENSIVE TREATMENT PLANNING Routine 06/09/2024 2:30 PM EDT ADJUST PARTIAL DENTURE - MANDIBULAR Routine 06/09/2024 2:30 PM EDT documented in this encounter Visit Diagnoses Diagnosis Edentulous maxilla- Primary Ill-fitting dentures documented in this encounter
--- OUTSIDE RECORDS SUMMARY | 2024-06-13 13:51 | XMS_ITS | Clinical Summary ---
Author Organization [facility] Address [address] [place] [address] Care Team Providers Care Kindergarten Assistant Name Role Phone Unavailable Primary Care Provider Unavailabl e Allergies No known active allergies Medications Ventolin HFA 108 (90 Base) MCG/ACT inhaler INHALE 2 PUFFS BY MOUTH EVERY 6 HOURS NEEDED FOR WHEEZING OR SHORTNESS OF BREATH 5 Active ALPRAZolam (Xanax) 0.5 MG tablet Take 1 tablet by mouth if needed at bedtime for anxiety. 4 Active amLODIPine (Norvasc) 5 MG tablet Take 1 tablet by mouth Once per day. 5 Active brimonidine (AlphaGAN) 0.2 % ophthalmic solution PLACE 1 DROP IN THE LEFT EYE TWICE DAILY 12 HOURS APART 5 Active budesonide-form oterol (Symbicort) 80-4.5 MCG/ACT inhaler INHALE 1 PUFF BY MOUTH TWICE DAILY, RINSE MOUTH AFTER USING. 5 Active Cyanocobalamin (B-12) 1000 MCG tablet controlled-rele ase Take 1 tablet by mouth Once per day. 5 Active ibuprofen 800 MG tablet TAKE 1 TABLET BY MOUTH EVERY 8 HOURS NEEDED (for pain) 5 Active latanoprost (Xalatan) 0.005 % ophthalmic solution PLACE 1 DROP IN THE LEFT EYE EVERY DAY AT BEDTIME 5 Active pantoprazole (ProtoNix) 40 MG EC tablet Take 1 tablet by mouth Once per day. 5 Active polyvinyl alcohol (Liquifilm Tears) 1.4 % ophthalmic solution INSTILL 1 DROP INTO THE AFFECTED EYE(S) 4-6 TIMES DAILY. UP TO EVERY 2 HOURS NEEDED para sea comoda 5 Active Active Problems Problem Noted Date Diagnosed Date Edentulous maxilla 06/09/2024 Ill-fitting dentures 06/09/2024 Encounters Date Type Department Care Team Description 06/09/2024 2:30 PM EDT Office Visit [facility] [address] [place], [place] [phone] Eliseo Lei DDS Edentulous maxilla (Primary Dx); Ill-fitting dentures from Last 3 Months Social History Tobacco Use Types Packs/Day Years [...] Orientation Straight 01/02/2022 10 :20 AM EDT Last Filed Vital Signs Vital Sign Reading Time Taken Comments Blood Pressure 144/66 06/09/2024 2:11 PM EDT Pulse 100 06/09/2024 2:11 PM EDT Temperature - - Respiratory Rate - - Oxygen Saturation - - Inhaled Oxygen Concentration - - Weight - - Height - - Body Mass Index - - Plan of Treatment Health Maintenance Due Date Last Done Comments CT Colonography 1952 Colonoscopy 1952 Colorectal Cancer Screening 1952 Depression Screening 1952 FIT DNA/Cologuard 1952 FIT 1952 FOBT 1952 SDOH Screening 1952 Sigmoidoscopy 1952 Alcohol/Substance Use Screening 1964 Hepatitis C Screening 1970 Mammogram 1992 Zoster Vaccines (1 of 2) 2002 Dental Oral Exam 12/10/2024 06/09/2024 Tobacco Screening 06/09/2025 06/09/2024 Dental X-Ray: Full Mouth 06/11/2027 06/09/2024 RSV Patients and Patients Aged 60 years or older (1 - 1-dose 75+ series) 12/13/2027 DTaP/Tdap/Td Vaccines (5 - Td or Tdap) 04/15/2034 04/15/2024, 12/16/2012, 09/23/2009, Additional history exists COVID-19 Vaccine Completed 02/12/2024, , 03/28/2022, Additional history exists Influenza Vaccine Completed 02/12/2024, , 01/12/2022, Additional history exists Pneumococcal Vaccine: 50+ Years Completed 04/15/2024, 06/05/2022, 01/07/2016 Dental Prophylaxis Discontinued Dental X-Ray: Bitewings Discontinued HIB Vaccines Aged Out No longer eligi ble based on patient's age to complete this topic HPV Vaccines Aged Out No longer eligi ble based on patient's age to complete this topic Hepatitis A Vaccines Aged Out No long er eligible based on patient's age to complete this topic Hepatitis B Vaccines Aged Out No long er eligible based on patient's age to complete this topic IPV Vaccines Aged Out No longer eligi ble based on patient's age to complete this topic Meningococcal Vaccine Aged Out No gloria lee eligible based on patient's age to complete this topic RSV under 20 months Aged Out No longe r eligible based on patient's age to complete this topic Rotavirus Vaccines Aged Out No longer eligible based on patient's age to complete this topic Procedures Procedure Name Priority Date/Time Associated Diagnosis Comments ADJUST PARTIAL DENTURE - MANDIBULAR Routine 06/09/2024 2:30 PM EDT CASE PRESENTATION, DETAILED AND EXTENSIVE TREATMENT PLANNING Routine 06/09/2024 2:30 PM EDT Full PANORAMIC RADIOGRAPHIC IMAGE Routine 06/09/2024 2:30 PM EDT COMPREHENSIVE ORAL EVALUATION - NEW OR ESTABLISHED PATIENT Routine 06/09/2024 2:30 PM EDT from Last 3 Months Insurance DENTAL [facility]
== END 2024-06-13 13:30 | disposition home or self-care (01) ==
LOC: HO.MAMMO 13:29
PROVIDERS: PCP Internal Medicine; Visit Provider Internal Medicine
DX: Z13.820 Encounter for screening for osteoporosis (principal); Z78.0 Asymptomatic menopausal state
CPT/HCPCS: 77080

== ENCOUNTER → 2024-06-13 14:00 | Outpatient (BNV) | payer OTHER, SELFPAY | PROVIDERS: PCP Internal Medicine; Visit Provider Radiology Diagnostic Radiology | DX: E28.39 Other primary ovarian failure (principal) | CPT/HCPCS: 77080 ==

== ENCOUNTER 2024-08-18 10:47 | Outpatient (REF) | payer OTHER, SELFPAY ==
--- OUTSIDE RECORDS SUMMARY | 2024-08-18 12:16 | XMS_ITS | Clinical Summary ---
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 Name Role Phone Unavailable Primary Care Provider [...] Encounters Date Type Department Care Team Description 08/12/2024 2:30 PM EDT Office Visit [facility] [address] [place] [address] Eliseo Lei DDS Edentulous maxilla (Primary Dx) 06/09/2024 2:30 PM EDT Office Visit [facility] [address] [place] [address] Eliseo Lei DDS Edentulous maxilla (Primary Dx); [...] Sign Reading Time Taken Comments Blood Pressure 138/76 08/12/2024 1:29 PM EDT Pulse 70 08/12/2024 1:29 PM EDT Temperature - - Respiratory Rate - - Oxygen Saturation - - Inhaled Oxygen Concentration - - Weight - - Height - - Body Mass Index - - Plan of Treatment Upcoming Encounters Date Type Department Care Team (Late st Contact Info) Description 08/27/2024 1:30 PM EDT Office Visit [facility] [address] [place] [address] Eliseo Lei DDS [address] [place] [address] Health Maintenance Due Date Last Done Comments CT Colonography 1952 Colonoscopy 1952 Colorectal Cancer Screening 1952 Depression Screening 1952 FIT DNA/Cologuard 1952 FIT 1952 FOBT 1952 SDOH Screening 1952 Sigmoidoscopy 1952 Alcohol/Substance Use Screening 1964 Hepatitis C Screening 1970 Mammogram 1992 COVID-19 Vaccine ( season) 2024 02/12/2024, 02/01/2023, 03/28/2022, Additional history exists Zoster Vaccines (2 of 2) 08/21/2024 06/26/2024 Dental Oral Exam 12/10/2024 06/09/2024 Tobacco Screening 08/12/2025 08/12/2024 Dental X-Ray: Full Mouth 06/11/2027 06/09/2024 RSV Patients and Patients Aged 60 years or older (1 - 1-dose 75+ series) 12/13/2027 DTaP/Tdap/Td Vaccines (6 - Td or Tdap) 06/26/2034 06/26/2024, 04/15/2024, 12/16/2012, Additional history exists Influenza Vaccine Completed 02/12/2024, [...] patient's age to complete this topic Meningococcal B Vaccine Aged Out No l onger eligible based on patient's age to complete [...] Procedure Name Priority Date/Time Associated Diagnosis Comments DENTURE IMPRESSION Routine 08/12/2024 2: 30 PM EDT ADJUST PARTIAL DENTURE - MANDIBULAR Routine 06/09/2024 2:30 PM EDT CASE PRESENTATION, DETAILED AND EXTENSIVE TREATMENT PLANNING Routine 06/09/2024 2:30 PM EDT Full PANORAMIC RADIOGRAPHIC IMAGE Routine 06/09/2024 2:30 PM EDT COMPREHENSIVE ORAL EVALUATION - NEW OR ESTABLISHED PATIENT Routine 06/09/2024 2:30 PM EDT from Last 3 Months Insurance DENTAL - [facility]
[2024-08-18 12:18] LABS: Alanine Aminotransferase 28 U/L (0-31); Albumin Level 4.2 g/dL (3.5-5.0); Alkaline Phosphatase 99 U/L (39-117); Anion Gap 16 (12-20); Aspartate Amino Transferase 37 U/L (5-31); Bilirubin Total 0.3 mg/dL (0.0-1.0); Blood Urea Nitrogen 17 mg/dL (9-16); Calcium 9.7 mg/dL (8.4-10.2); Carbon Dioxide 25 mmol/L (22-29); Chloride 103 mmol/L (96-108); Cholesterol 228 mg/dL (<200); Estimated Glomerular Filt Rate > 60; Glucose Fasting 146 mg/dL (60-99); HDL Cholesterol 45 mg/dL (>40); LDL Cholesterol Calculated 146 mg/dL (<100); Potassium 4.5 mmol/L (3.3-5.1); Sodium 139 mmol/L (135-145); Total Protein 7.6 g/dL (6.5-8.0); Triglycerides 189 mg/dL (<150)
[2024-08-18 12:28] LABS: Vitamin D 25-OH Total 78.1 ng/mL (>30)
[2024-08-18 12:38] LABS: Creatinine Urine 133.59 mg/dL; Microalbum/Creatinine Ratio Ur 11.9 ug/mg cr (<30)
== END 2024-08-18 10:48 | disposition home or self-care (01) ==
LOC: HO.LAB 10:47
PROVIDERS: PCP Internal Medicine; Visit Provider Internal Medicine
DX: E11.9 Type 2 diabetes mellitus without complications (principal); R80.9 Proteinuria, unspecified; E55.9 Vitamin D deficiency, unspecified; E78.5 Hyperlipidemia, unspecified
CPT/HCPCS: 36415; 80053; 80061; 82043; 82306; 82570

== ENCOUNTER 2024-08-20 12:49 | Outpatient (AMB) | payer OTHER, SELFPAY ==
--- NOTE | 2024-08-20 13:09 | MHC.PC.OV ---
Vital Signs 08/20/24 13:15 Height 5 ft 3 in Weight 184 lb BMI 32.6 BP 122/70 Blood Pressure Location Lt brachial Position Sitting Intake Visit Reasons: dm Intake Note: Patient here for a follow up DM Nursing Director Required: No Accompanied by: Self / Same As Patient Allergies Gadolinium-Containing Contrast Medi (Gadolinium-Containing Contrast) Allergy (Mild, Verified 08/20/24 13:42) HIVES atorvastatin Adverse Reaction (Intermediate, Verified 08/20/24 13:42) stomach upset caffeine (CAFFEINE) Adverse Reaction (Intermediate, Verified 08/20/24 13:42) Hypotension lisinopril Adverse Reaction (Intermediate, Verified 08/20/24 13:42) cough simvastatin Adverse Reaction (Intermediate, Verified 08/20/24 13:42) headache Medication List - Last Reconciled 08/20/24 by Shiela Murphy MD alcohol swabs (Alcohol Prep Pads) 1 pad topical BID 50 days alprazolam 0.5 mg PO DAILY PRN 30 days amlodipine 5 mg PO DAILY 90 days baclofen 10 mg PO TID PRN 30 days blood sugar diagnostic (FreeStyle Lite Strips) 1 strip miscellaneous DAILY blood-glucose meter (FreeStyle Lite Meter kit) As directed budesonide-formoterol 80-4.5 mcg/actuation 1 inh inhalation BID 30 days cyanocobalamin (vitamin B-12) ER 1,000 mcg PO DAILY 90 days ezetimibe 10 mg PO DAILY 90 days ibuprofen 800 mg PO Q8H PRN 30 days lancets (TRUEplus Lancets) Use 1 lancet once a day latanoprost 0.005% drps ophthalmic (eye) metformin 1,000 mg PO BID 90 days pantoprazole 40 mg PO DAILY 90 days Ventolin HFA 90 mcg/actuation (albuterol sulfate) 2 puffs inhalation Q6H PRN 30 days NS Tobacco use date assessed: 04/15/24 Fall risk assessment: No Falls in past year Last assessed Fall Risk: 08/20/24 Dental Screening Dental Screen Date: 04/15/24 HPI HPI Comments History of Present Illness Details This is a 73-year-old female with diabetes mellitus type 2, hypertension, pure hypercholesterolemia, mild asthma and mild major depression as well as GERD that comes today for follow-up on her conditions. A1c of 6.9% which is within goal. Blood pressure stable with amlodipine. LDL not on goal and she admits not being compliant with Zetia. I will add low-dose statins. LDL goal should be less than 70. Asthma stable with rescue inhaler and she use it less than once a month. GERD stable with PPIs. Depression in remission. REPLACED BY [facility] Medical History (Updated 04/15/24 @ 13:28 by Shiela Murphy MD) Hypovitaminosis D GERD (gastroesophageal reflux disease) Pure hypercholesterolemia Diabetes mellitus Polyarthralgia B12 deficiency Essential hypertension Surgical History Tubal ligation status History of eye surgery Family History Father Asthma Mother Stomach cancer Brother Prostate cancer Bladder cancer Social History Housing: Apartment Alcohol intake: former Patient Tobacco Use Status: Never used Tobacco e-Cigarette/Vaping Use: Never Used Second Hand Smoke Exposure: No service: No Current occupational status: disabled Cognitive needs: No Hearing needs: No Vision needs: Yes Questionnaire Thrive Questionnaire Date Thrive assessed: 04/15/24 I am a: Patient What is your living situation today?: I have a steady place to live Within the past 12 months, did the food you bought not last and you didn't have the money to get more?: I choose not to answer this question Within the past 12 months, did you worry whether your food would run out before you got money to buy more?: I choose not to answer this question Do you have trouble paying for medicines?: I choose not to answer this question Do you have trouble getting transportation to medical appointments?: I choose not to answer this question Do you have trouble paying your heating and electricity bill?: I choose not to answer this question Do you have trouble taking care of your child, family member or friend?: I choose not to answer this question Do you have trouble with day-to-day activities such as bathing, preparing meals, shopping, managing finances, etc.?: I choose not to answer this question Are you currently unemployed and looking for a job?: I choose not to answer this question Are you interested in more education?: I choose not to answer this question Please select the resources that you would like help with: None Currently or been in a relationship where the following occur: I choose not to answer THRIVE Score: 0 AMADOU-7 AMB Questionnaire AMADOU-7 Date AMADOU - 7 assessed: 04/15/24 Source: Developed by Drs. Yahir Hayward, Pearl Rodriguez, Wally Pollock and colleagues, with an educational justice from [email or web address]. Review of Systems Const All systems reviewed & are unremarkable except as noted in HPI and below Card Denies chest pain at rest, Denies chest pain with activity, Denies edema, Denies irregular heart rhythm, Denies claudication, Denies dyspnea, Denies dyspnea on exertion, Denies orthopnea, Denies paroxysmal nocturnal dyspnea and Denies slow heart rate Resp Denies cough, Denies dyspnea and Denies dyspnea on exertion GI Denies abdominal pain, Denies change in bowel habits, Denies excessive flatus, Denies nausea and Denies vomiting Denies urinary incontinence, Denies urinary hesitancy and Denies urinary urgency Musc Denies abnormal gait, Denies atrophy, Denies deformity and Denies limited range of motion Skin/Breast Denies bleeding lesions, Denies changing lesions and Denies rash Neuro Denies abnormal gait and Denies lack of coordination Physical exam (Primary Care) Vital Signs: Last Vital Signs BP 122/70 08/20/24 13:15 BMI result Body Mass Index 32.6 Tobacco/Smoking Status: Tobacco use Status Tobacco use date assessed 04/15/24 08/20/24 13:21 Patient Tobacco Use Status Never used Tobacco 08/20/24 13:21 Tobacco use type 07/11/21 14:43 e-Cigarette/Vaping Use Never Used 08/20/24 13:21 Thrive Assessment: Date of Thrive Assessment Date Thrive assessed 04/15/24 08/20/24 13:21 Currently or been in a relationship where the following occur: I choose not to answer Resp Effort & Inspection: normal respiratory effort Auscultation: clear to auscultation bilaterally Cardio Jugular venous distension: no JVD Rate: regular rate Rhythm: regular rhythm Heart sounds: S1 normal heart sound present and S2 normal heart sound present Extrem General: Yes full ROM Results AMB Hemoglobin A1c AMB Hemoglobin A1c 6.9 % Last Edit by EDIN Michaels on 06/18/25 13:27 Results Reviewed Results Reviewed: Laboratory Last Values Hgb A1c (Clinic) 6.9 % (4.0-6.0) H 08/20/24 13:08 Coding Level of Care Code Est Pt Level 4 (96185) Complex EM visit Add On G2211 Diagnoses Mild major depression F32.0 Essential hypertension I10 Pure hypercholesterolemia E78.00 Type 2 diabetes mellitus without complication, without long-term current use of insulin E11.9 Diabetes mellitus type: type 2 Diabetes mellitus medical terminologist insulin use: without usp use Diabetes mellitus complication status: without complication Gastroesophageal reflux disease, unspecified whether esophagitis present K21.9 Esophagitis presence: esophagitis presence not specified Mild asthma J45.909 Time Spent (min) 22 Assessment & Plan Assessment & Plan (1) Mild major depression: Code(s): F32.0 - Major depressive disorder, single episode, mild Category: Medical (2) Essential hypertension: Code(s): I10 - Essential (primary) hypertension Category: Medical (3) Pure hypercholesterolemia: Code(s): E78.00 - Pure hypercholesterolemia, unspecified Category: Medical (4) Diabetes mellitus: Code(s): E11.9 - Type 2 diabetes mellitus without complications Category: Medical Qualifiers: Diabetes mellitus type: type 2 Diabetes mellitus usp insulin use: without usp use Diabetes mellitus complication status: without complication Qualified Code(s): E11.9 - Type 2 diabetes mellitus without complications (5) GERD (gastroesophageal reflux disease): Code(s): K21.9 - Gastro-esophageal reflux disease without esophagitis Category: Medical Qualifiers: Esophagitis presence: esophagitis presence not specified Qualified Code(s): K21.9 - Gastro-esophageal reflux disease without esophagitis (6) Mild asthma: Code(s): J45.909 - Unspecified asthma, uncomplicated Category: Medical Plan Continue current meds. A1c goal is equal or less than 7%. LDL goal is less than 70 and I will add a statin. Blood pressure goal is equal or less than 130/80. Depression in remission. Continue long-acting inhaler for asthma and use rescue inhaler as needed. Orders: Orders AMB Hemoglobin A1c Today E11.9 - Type 2 diabetes mellitus without complications Microalbumin, Random (w Creat) 4 Months R80.9 - Proteinuria, unspecified Comprehensive Macy. Panel Fast 4 Months E11.9 - Type 2 diabetes mellitus without complications Lipid Panel 4 Months E78.5 - Hyperlipidemia, unspecified Vitamin B12 and Folate 4 Months E53.8 - Deficiency of other specified B group vitamins Vitamin D 25-OH Total 4 Months E55.9 - Vitamin D deficiency, unspecified Medications: New rosuvastatin 10 mg PO DAILY 90 tabs 1RF 90 days Refilled blood sugar diagnostic (FreeStyle Lite Strips) 1 strip miscellaneous DAILY 100 strips 1RF for diabetes mellitus E11.9 - Type 2 diabetes mellitus without complications
[2024-08-20 13:15] VITALS: BP 122/70; BMI 32.6
== END 2024-08-20 13:55 | disposition home or self-care (01) ==
LOC: HO.HMCH 12:49
PROVIDERS: PCP Internal Medicine; Visit Provider Internal Medicine
DX: F32.0 Major depressive disorder, single episode, mild (principal); I10 Essential (primary) hypertension; E78.00 Pure hypercholesterolemia, unspecified; E11.9 Type 2 diabetes mellitus without complications; K21.9 Gastro-esophageal reflux disease without esophagitis; J45.909 Unspecified asthma, uncomplicated

== ENCOUNTER → 2024-08-20 12:49 | Outpatient (BNVA) | payer OTHER, SELFPAY | PROVIDERS: PCP Internal Medicine; Visit Provider Internal Medicine | DX: E11.9 Type 2 diabetes mellitus without complications (principal); I10 Essential (primary) hypertension; E78.00 Pure hypercholesterolemia, unspecified; J45.909 Unspecified asthma, uncomplicated; F32.A Depression, unspecified; K21.9 Gastro-esophageal reflux disease without esophagitis; F32.0 Major depressive disorder, single episode, mild; R80.9 Proteinuria, unspecified; E53.8 Deficiency of other specified B group vitamins; E55.9 Vitamin D deficiency, unspecified | CPT/HCPCS: 83036; 99212 ==

== ENCOUNTER 2024-12-29 10:43 | Outpatient (REF) | payer OTHER, SELFPAY ==
[2024-12-29 12:06] LABS: Alanine Aminotransferase 24 U/L (0-31); Albumin Level 4.4 g/dL (3.5-5.0); Alkaline Phosphatase 104 U/L (39-117); Anion Gap 16 (12-20); Aspartate Amino Transferase 40 U/L (5-31); Blood Urea Nitrogen 16 mg/dL (9-16); Calcium 9.1 mg/dL (8.4-10.2); Carbon Dioxide 25 mmol/L (22-29); Chloride 102 mmol/L (96-108); Cholesterol 172 mg/dL (<200); Estimated Glomerular Filt Rate > 60; HDL Cholesterol 46 mg/dL (>40); Potassium 4.1 mmol/L (3.3-5.1); Sodium 139 mmol/L (135-145); Total Protein 7.7 g/dL (6.5-8.0); Triglycerides 158 mg/dL (<150)
[2024-12-29 12:28] LABS: Folate 7.0 ng/mL (> or = 4.0); Vitamin B12 782 pg/mL (200-900)
== END 2024-12-29 10:44 | disposition home or self-care (01) ==
LOC: HO.LAB 10:43
PROVIDERS: PCP Internal Medicine; Visit Provider Internal Medicine
DX: E11.9 Type 2 diabetes mellitus without complications (principal); E53.8 Deficiency of other specified B group vitamins; R80.9 Proteinuria, unspecified; E55.9 Vitamin D deficiency, unspecified; E78.5 Hyperlipidemia, unspecified
CPT/HCPCS: 36415; 80053; 80061; 82043; 82306; 82570; 82607; 82746

== ENCOUNTER 2024-12-30 12:42 | Outpatient (AMB) | payer OTHER, SELFPAY ==
[2024-12-30 12:48] VITALS: BP 122/80; PULSE 97; O2SAT 95; BMI 31.9
--- NOTE | 2024-12-30 12:48 | MHC.PC.OV ---
Vital Signs 12/30/24 12:48 Height 5 ft 3 in Weight 180 lb 2 oz BMI 31.9 BP 122/80 Blood Pressure Location Lt brachial Position Sitting Pulse 97 Pulse Source Pulse Oximeter Pulse Oximetry (%) 95 Oxygen Delivery Method Room Air Intake Visit Reasons: dm International Accountant Required: No Accompanied by: Self / Same As Patient Allergies Gadolinium-Containing Contrast Medi (Gadolinium-Containing Contrast) Allergy (Mild, Verified 12/30/24 13:07) HIVES atorvastatin Adverse Reaction (Intermediate, Verified 12/30/24 13:07) stomach upset caffeine (CAFFEINE) Adverse Reaction (Intermediate, Verified 12/30/24 13:07) Hypotension lisinopril Adverse Reaction (Intermediate, Verified 12/30/24 13:07) cough simvastatin Adverse Reaction (Intermediate, Verified 12/30/24 13:07) headache Medication List - Last Reconciled 12/30/24 by Shiela Murphy MD alcohol swabs (Alcohol Prep Pads) 1 pad topical BID 50 days alprazolam 0.5 mg PO DAILY PRN 30 days amlodipine 5 mg PO DAILY 90 days baclofen 10 mg PO TID PRN 30 days blood sugar diagnostic (FreeStyle Lite Strips) 1 strip miscellaneous DAILY blood-glucose meter (FreeStyle Lite Meter kit) As directed budesonide-formoterol 80-4.5 mcg/actuation 1 inh inhalation BID 30 days cyanocobalamin (vitamin B-12) ER 1,000 mcg PO DAILY 90 days ezetimibe 10 mg PO DAILY 90 days ibuprofen 800 mg PO Q8H PRN 30 days lancets (TRUEplus Lancets) Use 1 lancet once a day latanoprost 0.005% drps ophthalmic (eye) metformin 1,000 mg PO BID 90 days [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 As directed] pantoprazole 40 mg PO DAILY 90 days rosuvastatin 10 mg PO DAILY 90 days Ventolin HFA 90 mcg/actuation (albuterol sulfate) 2 puffs inhalation Q6H PRN 30 days NS Tobacco use date assessed: 12/30/24 Fall risk assessment: No Falls in past year Last assessed Fall Risk: 12/30/24 Dental Screening Dental Screen Date: 12/30/24 Did you have a dental visit in the last 12 months?: Yes Did you have a dental problem in the last 6 months where you did not have access to dental care?: No Was dental information given to patient?: Patient has dentist HPI HPI Comments History of Present Illness Details The patient is a 74-year-old female presenting for a follow-up visit for management of her chronic conditions, including diabetes. Her last HgbA1c is 6.9%, and she currently takes metformin 1000 mg twice daily. The patient's medical history is significant for hypertension, managed with amlodipine, and hypercholesterolemia, treated with rosuvastatin 10 mg and ezetimibe. Her LDL cholesterol was recently 95 mg/dL. She has known allergies to contrast dye, atorvastatin (causing myalgia), caffeine (causing blood pressure changes), lisinopril (causing cough), and simvastatin (causing headache). She reports neck pain, headaches, and generalized pain. For respiratory management, she uses a daily budesonide/formoterol inhaler and an as-needed inhaler. She also takes alprazolam for anxiety, which is managed by her therapist, baclofen as a muscle relaxant, pantoprazole for her stomach, and B12 supplements. Regarding health maintenance, her bone densitometry this year was normal, and she has a mammogram scheduled for February. She has not yet completed a Cologuard test. Her immunizations are up to date, including for pneumonia and tetanus. Recent lab work showed good renal function, normal vitamin B12 and D levels, and low protein in the urine. One of her hepatic enzymes is persistently slightly elevated, possibly related to fatty liver. Has history of mild major depression in remission. [facility] Medical History Hypovitaminosis D GERD (gastroesophageal reflux disease) Pure hypercholesterolemia Diabetes mellitus Polyarthralgia B12 deficiency Essential hypertension Surgical History Tubal ligation status History of eye surgery Family History Father Asthma Mother Stomach cancer Brother Prostate cancer Bladder cancer Social History Housing: Apartment Alcohol intake: former Patient Tobacco Use Status: Never used Tobacco e-Cigarette/Vaping Use: Never Used Second Hand Smoke Exposure: No service: No Current occupational status: disabled Cognitive needs: No Hearing needs: No Vision needs: Yes Questionnaire PHQ-9 Over the last 2 weeks, how often have you been bothered by any of the following problems? 1. Little interest or pleasure in doing things: more than half the days 2. Feeling down, depressed, or hopeless: more than half the days 3. Trouble falling or staying asleep, or sleeping too much: more than half the days 4. Feeling tired or having little energy: more than half the days 5. Poor appetite or overeating: several days 6. Feeling bad about yourself - or that you are a failure or have let yourself or your family down: not at all 7. Trouble concentrating on things, such as reading the newspaper or watching television: not at all 8. Moving or speaking so slowly that other people could have noticed. Or the opposite - being so fidgety or restless that you have been moving around a lot more than usual: not at all 9. Thoughts that you would be better off or of hurting yourself in some way: not at all Total score: 9 Depression Screening Interpretation: Positive Depression Screening Follow-up: Existing condition and Follow-up Visit Requested Depression Screening Done: Yes 38769 - PHQ-9 Billing: Yes Source: Developed by Drs. Yahir Hayward, Pearl Rodriguez, Wally Pollock and colleagues, with an educational justice from [employer]. Thrive Questionnaire Date Thrive assessed: 04/15/24 I am a: Patient What is your living situation today?: I have a steady place to live Within the past 12 months, did the food you bought not last and you didn't have the money to get more?: I choose not to answer this question Within the past 12 months, did you worry whether your food would run out before you got money to buy more?: I choose not to answer this question Do you have trouble paying for medicines?: I choose not to answer this question Do you have trouble getting transportation to medical appointments?: I choose not to answer this question Do you have trouble paying your heating and electricity bill?: I choose not to answer this question Do you have trouble taking care of your child, family member or friend?: I choose not to answer this question Do you have trouble with day-to-day activities such as bathing, preparing meals, shopping, managing finances, etc.?: I choose not to answer this question Are you currently unemployed and looking for a job?: I choose not to answer this question Are you interested in more education?: I choose not to answer this question Please select the resources that you would like help with: None Currently or been in a relationship where the following occur: I choose not to answer THRIVE Score: 0 AUDIT C Alcohol Use Questionnaire (AUDIT-C) 1. How often do you have a drink containing alcohol?: Never 3. How often do you have six or more drinks on one occasion?: Never Total Score: 0 Score Reviewed/Action Taken: No AMADOU-7 AMB Questionnaire AMADOU-7 Date AMADOU - 7 assessed: 04/15/24 Source: Developed by Drs. Yahir Hayward, Pearl Rodriguez, Wally Pollock and colleagues, with an educational justice from [employer]. Review of Systems Const All systems reviewed & are unremarkable except as noted in HPI and below Card Denies chest pain at rest, Denies chest pain with activity, Denies edema, Denies irregular heart rhythm, Denies claudication, Denies dyspnea, Denies dyspnea on exertion, Denies orthopnea, Denies paroxysmal nocturnal dyspnea and Denies slow heart rate Resp Denies cough, Denies dyspnea and Denies dyspnea on exertion GI Denies abdominal pain, Denies change in bowel habits, Denies excessive flatus, Denies nausea and Denies vomiting Denies urinary incontinence, Denies urinary hesitancy and Denies urinary urgency Musc Denies atrophy, Denies deformity and Denies limited range of motion Skin/Breast Denies bleeding lesions, Denies changing lesions and Denies rash Physical exam (Primary Care) Vital Signs: Last Vital Signs Pulse 97 12/30/24 12:48 BP 122/80 12/30/24 12:48 Pulse Ox 95 12/30/24 12:48 Oxygen Delivery Method Room Air 12/30/24 12:48 BMI result Body Mass Index 31.9 BMI Assessment/Plan discussion: High BMI High, discussed plan: lifestyle, weight reduction, dietary and physical activity Tobacco/Smoking Status: Tobacco use Status Tobacco use date assessed 12/30/24 12/30/24 12:51 Patient Tobacco Use Status Never used Tobacco 12/30/24 12:51 Tobacco use type 07/11/21 14:43 e-Cigarette/Vaping Use Never Used 12/30/24 12:51 PHQ-9: PHQ-9 Score PHQ-9: Total score 9 12/30/24 13:27 Depression Screening Interpretation: Positive Depression Screening Follow-up: Existing condition and Follow-up Visit Requested Thrive Assessment: Date of Thrive Assessment Date Thrive assessed 04/15/24 12/30/24 12:51 Currently or been in a relationship where the following occur: I choose not to answer Resp Effort & Inspection: normal respiratory effort Auscultation: clear to auscultation bilaterally Cardio Jugular venous distension: no JVD Rate: regular rate Rhythm: regular rhythm Heart sounds: S1 normal heart sound present and S2 normal heart sound present GI Inspection: Yes normal to inspection Palpation (GI): Soft to palpation and nontender Auscultation: normal bowel sounds Extrem General: Yes full ROM Office Procedures Flu Questionnaire Does the patient have a severe egg allergy?: No Does the patient have severe life threatening allergies?: No Does the patient have a fever or illness today?: No Has the patient ever had Guillain-Berwick Syndrome?: No Has the patient ever had any past reaction to a flu shot?: No Results AMB Hemoglobin A1c AMB Hemoglobin A1c 6.9 % Last Edit by EDIN Lundberg on 12/30/24 13:28 Immunizations Fluarix [id number] (PF) 45 mcg (15 mcg x 3)/0.5 mL IM syringe Performing Provider: Shiela Murphy MD [facility] Administered by: EDIN Lundberg on 12/30/24 13:25 Dose Route Admin Location Dispensed Lot Number Expiration Date [employer] 0.5 mL IM Left Deltoid 0.5 mL [id number] 09/01/25 [id number] Snowman VIS Given Date VIS Provided VIS Publication Date 12/30/24 Single Vaccine 24 Eligibility Eligibility Date Funding Source Not [facility] Eligible 12/30/24 Private Results Reviewed Results Reviewed: Laboratory Last Values Hgb A1c (Clinic) 6.9 % (4.0-6.0) H 12/30/24 12:53 Coding Level of Care Code Est Pt Level 4 (16068) Complex EM visit Add On G2211 Diagnoses Type 2 diabetes mellitus without complication, without long-term current use of insulin E11.9 Diabetes mellitus complication status: without complication Diabetes mellitus [facility] insulin use: without [facility] use Diabetes mellitus type: type 2 Essential hypertension I10 Pure hypercholesterolemia E78.00 B12 deficiency E53.8 Hypovitaminosis D E55.9 Mild major depression F32.0 Additional Codes PHQ-9 - 88308 - PHQ-9 Billing: Yes ([id number]) Time Spent (min) 21 Assessment & Plan Assessment & Plan (1) Diabetes mellitus: Code(s): E11.9 - Type 2 diabetes mellitus without complications Category: Medical Qualifiers: Diabetes mellitus complication status: without complication Diabetes mellitus [facility] insulin use: without rn long term care use Diabetes mellitus type: type 2 Qualified Code(s): E11.9 - Type 2 diabetes mellitus without complications (2) Essential hypertension: Code(s): I10 - Essential (primary) hypertension Category: Medical (3) Pure hypercholesterolemia: Code(s): E78.00 - Pure hypercholesterolemia, unspecified Category: Medical (4) B12 deficiency: Code(s): E53.8 - Deficiency of other specified B group vitamins Category: Medical (5) Hypovitaminosis D: Code(s): E55.9 - Vitamin D deficiency, unspecified Category: Medical (6) Mild major depression: Code(s): F32.0 - Major depressive disorder, single episode, mild Category: Medical Plan Plan 1. Type 2 Diabetes Mellitus The patient's HgbA1c is 6.9%. She will continue metformin 1000 mg twice daily. New laboratory tests will be ordered for the next visit. 2. Hypercholesterolemia The patient's LDL cholesterol is 95 mg/dL, which is above the goal of 70 mg/dL. The patient is taking rosuvastatin 10 mg. Will prescribe ezetimibe to improve cholesterol levels. 3. Cervicalgia The patient complains of neck pain. An x-ray of the neck will be ordered to evaluate for arthritis. A prescription for a muscle relaxant will be sent. 4. Health Maintenance The patient will receive an influenza vaccine today. She has a mammogram scheduled for February. Instructions were provided for completing the Cologuard test. Refills for her pantoprazole were provided. 5. Hypertension Keep blood pressure less than 130/80 which is within goal. Orders: Orders Influenza [id number] Immunization Today Z23 - Encounter for immunization XR cervical spine 2V Today M54.2 - Cervicalgia Lipid Panel 4 Months E78.5 - Hyperlipidemia, unspecified Vitamin D 25-OH Total 4 Months E55.9 - Vitamin D deficiency, unspecified AMB Hemoglobin A1c Today Z13.9 - Encounter for screening, unspecified Microalbumin, Random (w Creat) 4 Months R80.9 - Proteinuria, unspecified Vitamin B12 and Folate 4 Months E53.8 - Deficiency of other specified B group vitamins Comprehensive [place]. Panel Fast 4 Months E11.9 - Type 2 diabetes mellitus without complications Medications: Refilled metformin 1,000 mg PO BID 180 tabs 3RF 90 days E11.9 - Type 2 diabetes mellitus without complications baclofen 10 mg PO TID PRN 90 tabs 4RF muscle spasm 30 days E53.8 - Deficiency of other specified B group vitamins ezetimibe 10 mg PO DAILY 90 tabs 1RF 90 days
== END 2024-12-30 13:26 | disposition home or self-care (01) ==
LOC: HO.HMCH 12:43
PROVIDERS: PCP Internal Medicine; Visit Provider Internal Medicine
DX: E11.9 Type 2 diabetes mellitus without complications (principal); I10 Essential (primary) hypertension; E78.00 Pure hypercholesterolemia, unspecified; E53.8 Deficiency of other specified B group vitamins; E55.9 Vitamin D deficiency, unspecified; F32.0 Major depressive disorder, single episode, mild; Z23 Encounter for immunization; Z13.9 Encounter for screening, unspecified

== ENCOUNTER → 2024-12-30 12:42 | Outpatient (BNVA) | payer OTHER, SELFPAY | PROVIDERS: PCP Internal Medicine; Visit Provider Internal Medicine | DX: I10 Essential (primary) hypertension (principal); E78.00 Pure hypercholesterolemia, unspecified; M54.2 Cervicalgia; R51.9 Headache, unspecified; E11.9 Type 2 diabetes mellitus without complications; E53.8 Deficiency of other specified B group vitamins; E55.9 Vitamin D deficiency, unspecified; F32.0 Major depressive disorder, single episode, mild; Z23 Encounter for immunization; Z79.899 Other long term (current) drug therapy | CPT/HCPCS: 83036; 90471; 90656; 96127; 99212 ==

== ENCOUNTER 2025-02-11 11:42 | Outpatient (REF) | payer OTHER, SELFPAY ==
--- NOTE | ~2025-02-11 | MM_ITS ---
EXAMINATION: MM SCREENING DIGITAL BREAST TOMOSYNTHESIS, BILATERAL CLINICAL INFORMATION: Screening. Asymptomatic. COMPARISON: Mammography: Comparison is made with available priors TECHNIQUE: Digital breast mammography with tomosynthesis is performed in both the craniocaudal and mediolateral oblique views along with computer-aided detection (CAD). FINDINGS: There are scattered areas of fibroglandular density. There are no significant masses, abnormal calcifications, or other abnormalities. MM/MM tomosynthesis screening BI IMPRESSION: No mammographic evidence of malignancy. ASSESSMENT: BI-RADS Category 1: Negative RECOMMENDATION: Routine annual mammography screening. 1 year F/U This examination should not preclude the clinical evaluation of a suspicious palpable abnormality. This patient's information was entered into a reminder system with a target due date for their next mammogram. Electronically signed by: Yaneth Arcos DO 02/13/2025 12:19 PM ERICA
== END 2025-02-11 11:43 | disposition home or self-care (01) ==
LOC: HO.MAMMO 11:42
PROVIDERS: Visit Provider Internal Medicine
DX: Z12.31 Encounter for screening mammogram for malignant neoplasm of breast (principal)
CPT/HCPCS: 77063; 77067

== ENCOUNTER → 2025-02-11 13:15 | Outpatient (BNV) | payer OTHER, SELFPAY | PROVIDERS: Visit Provider Internal Medicine | DX: Z12.31 Encounter for screening mammogram for malignant neoplasm of breast (principal) | CPT/HCPCS: 77063; 77067 ==